=== PATIENT | male | born 1980 ===

== ENCOUNTER 2017-11-07 23:52 | Inpatient (IN) | payer OTHER ==
--- NOTE | 2017-11-08 00:17 | C.PDOC ---
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 Patient has a Hx a clot to the left leg and is on xarelto. Patient describes the pain as a dull achy discomfort. Denies fever or chills. Time Seen by Provider: 11/08/17 00:16 Chief Complaint (Nursing): Chest Pain History Per: Patient History/Exam Limitations: no limitations Onset/Duration Of Symptoms: Hrs Current Symptoms Are (Timing): Still Present Severity: Moderate Pain Scale Rating Of: 4 Quality: Dull, Aching Associated Symptoms: denies: Nausea, Dyspnea, Diaphoresis, Syncope Modifying Factors: None Exacerbating Factors: None Alleviating Factors: None Recent travel outside of the [place]: No Past Medical History Reviewed: Historical Data, Nursing Documentation, Vital Signs Vital Signs: Last Vital Signs Temp 98.4 F 11/07/17 23:59 Pulse 69 11/08/17 02:21 Resp 16 11/08/17 02:21 BP 126/82 11/08/17 02:21 Pulse Ox 99 11/08/17 02:21 - Medical History PMH: Deep Vein Thrombosis (LEFT THIGH) Family History: States: No Known Family Hx - Social History Hx Alcohol Use: No Hx Substance Use: No - Immunization History Hx Tetanus Toxoid Vaccination: No Hx Influenza Vaccination: No Hx Pneumococcal Vaccination: No Review Of Systems Constitutional: Positive for: Weakness. Negative for: Fever, Chills Cardiovascular: Positive for: Chest Pain Respiratory: Negative for: Shortness of Breath Gastrointestinal: Negative for: Nausea, Vomiting Musculoskeletal: Positive for: Arm Pain Physical Exam - Physical Exam Appears: Non-toxic Skin: Warm, Dry Head: Normacephalic Oral Mucosa: Moist Chest: Symmetrical, No Tenderness Cardiovascular: Rhythm Regular Respiratory: No Rales, No Rhonchi, No Wheezing Gastrointestinal/Abdominal: Soft, No Tenderness Neurological/Psych: Oriented x3 ED Course And Treatment - Laboratory Results Result Diagrams: 11/08/17 00:29 11/08/17 00:29 ECG: Interpreted By Me, Viewed By Me ECG Rhythm: Sinus Rhythm (75), Nonspecific Changes O2 Sat by Pulse Oximetry: 100 (Room air) Pulse Ox Interpretation: Normal Progress Note: CT head, EKG, blood work, urinalysis, and CXR ordered. Aspirin administered. NIHSS Stroke Scale - Date/Time Evaluation Performed Date Performed: 11/08/17 Time Performed: 00:23 When Was NIHSS Performed: Baseline - How Severe is the Stoke Level of Consciousness: 0=Alert LOC to Questions: 0=Both comments correct LOC to commands: 0=Obeys both correctly Best Gaze: 0=Normal Visual: 0=No visual loss Facial: 0=Normal Motor Arm - Left: 0=No drift Motor Arm - Right: 0=No drift Motor Leg - Left: 0=No drift Motor Leg - Right: 0=No drift Limb Ataxia: 0=Absent Sensory: 0=Normal Best Language: 0=No aphasia Dysarthia: 0=Normal articulation Extinction & Inattention (Neglect): 0=Normal, no object Score: 0 Severity Of Stroke: 0= No Stroke Disposition Discussed With DrMeghan: Blaze Sargent Comment: accepted the pt on his service and took over the care at 2:50 AM Doctor Will See Patient In The: ED Counseled Patient/Family Regarding: Studies Performed, Diagnosis, Need For Followup - Disposition Disposition: HOSPITALIZED Disposition Time: 00:17 Condition: FAIR Forms: [facility] (German) - POA Present On Arrival: None - Clinical Impression Clinical Impression: Chest pain - Scribe Statement The provider has reviewed the documentation as recorded by the Scribe Toni Mckeon All medical record entries made by the Urielibbecky were at my direction and personally dictated by me. I have reviewed the chart and agree that the record accurately reflects my personal performance of the history, physical exam, medical decision making, and the department course for this patient. I have also personally directed, reviewed, and agree with the discharge instructions and disposition. Decision To Admit - Pt Status Changed To: Hospital Disposition Of: Inpatient - Admit Certification Admit to Inpatient:: After my assessment, the patient will require hospitalization for at least two midnights. This is because of the severity of symptoms shown, intensity of services needed, and/or the medical risk in this patient being treated as an outpatient. - InPatient: Physician Admission Certification: I certify that this patient requires 2 or more midnights of care for the following reason:: After my assessment, the patient will require hospitalization for at least two midnights. This is because of the severity of symptoms shown, intensity of services needed, and/or the medical risk in this patient being treated as an outpatient. - . Bed Request Type: Telemetry Admitting Physician: Blaze Sargent Patient Diagnosis: Chest pain
[2017-11-08] MEDS ORDERED: Aspirin 325 mg EC Tablets PO STA (00:18)
[2017-11-08 00:32] LABS: BASO % 0.6 % (0.0-2.0); EOS # 0.1 K/uL (0.0-0.7); EOS % 2.2 % (0.0-4.0); HEMOGLOBIN 12.2 g/dL (12.0-18.0); LYMPH # 1.4 K/uL (1.0-4.3); LYMPH % 30.2 % (20.0-40.0); MEAN CELL VOLUME 65.7 fL (80.0-94.0); MEAN CORPUSCULAR HEMOGLOBIN 21.2 pg (27.0-31.0); MEAN CORPUSCULAR HGB CONC 32.4 g/dL (33.0-37.0); MEAN PLATELET VOLUME 8.9 fL (7.2-11.7); MONO # 0.2 K/uL (0.0-0.8); MONO % 5.5 % (0.0-10.0); NEUT # 2.8 K/uL (1.8-7.0); NEUT % 61.5 % (50.0-75.0); RBC 5.76 Mil/uL (4.40-5.90); RED CELL DISTRIBUTION WIDTH 15.1 % (11.5-14.5); WHITE BLOOD COUNT 4.5 K/uL (4.8-10.8)
[2017-11-08] MEDS ORDERED: Aspirin 325 mg EC Tablets PO ONE (00:34)
[2017-11-08 00:46] LABS: D DIMER < 200 ng/mlDDU (0-243); INR 1.1; PARTIAL THROMBOPLASTIN TIME 28 SECONDS (21-34); PROTHROMBIN TIME 12.8 SECONDS (9.7-12.2)
[2017-11-08 00:55] LABS: ALB/GLOB RATIO 1.5 (1.0-2.1); ALBUMIN 4.2 g/dL (3.5-5.0); ALT/SGPT 10 U/L (21-72); AST/SGOT 16 U/L (17-59); BLOOD UREA NITROGEN 11 mg/dL (9-20); CALCIUM 8.4 mg/dl (8.6-10.4); GFR AFRICAN-AMERICAN > 60; GFR NON-AFRICAN AMERICAN > 60
--- NOTE | 2017-11-08 01:05 | CT ---
EXAM: CT Head Without Intravenous Contrast CLINICAL HISTORY: 37 years old, male; Pain; Headache and other: Right arm pain and heavyness and mid chest pain; Additional info: Pain r arm, on xeralto TECHNIQUE: Axial computed tomography images of the head/brain without intravenous contrast. All CT scans at this facility use one or more dose reduction techniques, viz.: automated exposure control; ma/kV adjustment per patient size (including targeted exams where dose is matched to indication; i.e. head); or iterative reconstruction technique. Coronal and sagittal reformatted images were created and reviewed. COMPARISON: No relevant prior studies available. FINDINGS: Brain: Focal hypodensity in the anterior right frontal lobe is identified. No hemorrhage. Ventricles: Unremarkable. No ventriculomegaly. Bones/joints: Unremarkable. No acute fracture. Soft tissues: Unremarkable. Sinuses: Unremarkable as visualized. No acute sinusitis. Mastoid air cells: Unremarkable as visualized. No mastoid effusion. IMPRESSION: Right frontal lobe hypodensity secondary to ischemic or inflammatory process. Further evaluation with MR of the brain could be obtained. No acute intracranial hemorrhage.
--- NOTE | 2017-11-08 03:35 | CP.PCM.HP ---
<MarceloJose duke - Last Filed: 11/08/17 03:41> History of Present Illness - History of Present Illness History of Present Illness: CC: Right arm weakness and chest pain since 7pm PMD: None Code Status: full code This patient is a 37yo M w/ a PMhx of DVT in the LLE diagnosed last month, unprovoked, who never underwent further blood testing as "if it gets worse I will do it then but I don't need to see a musical performer now" currently on Xarelto , therapeutic, for a LLE DVT. He states that his sister as well had a LLE DVT when she was , and therefore must be unrelated. He is complaining of right arm weakness and chest pain since 7pm. 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 He states he also has intermittent chest pain, described as dull, not associated with any other symptoms. Denies THAO, blurry/double vision, changes in vision, change in taste, change in hearing, SOB, diaphoresis, feeling of impending doom/panic, abdominal pain, N/V/D, dysuria/freq/urg or lower extremity pain/swelling. 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 Is from [place] originally now living in the [facility]. Present on Admission - Present on Admission Any Indicators Present on Admission: Yes History of DVT/PE: Yes History of Uncontrolled Diabetes: No Urinary Catheter: No Decubitus Ulcer Present: No Past Patient History - Infectious Disease Hx of Infectious Diseases: None - Past Social History Smoking Status: Never Smoked - PSYCHIATRIC Hx Substance Use: No - SURGICAL HISTORY Hx Surgeries: No - ANESTHESIA Hx Anesthesia: No Meds Allergies/Adverse Reactions: Allergies Allergy/AdvReac Type Severity Reaction Status Date / Time No Known Allergies Allergy Unverified 11/07/17 23:56 Physical Exam - Constitutional Appears: Non-toxic, No Acute Distress - Head Exam Head Exam: ATRAUMATIC - Eye Exam Eye Exam: EOMI, Normal appearance, PERRL. absent: Scleral icterus Pupil Exam: PERRL - ENT Exam ENT Exam: Mucous Membranes Moist - Neck Exam Neck exam: Positive for: Full Rom, Normal Inspection. Negative for: Lymphadenopathy, Meningismus, Tenderness, Thyromegaly - Respiratory Exam Respiratory Exam: Clear to Auscultation Bilateral, NORMAL BREATHING PATTERN. absent: Rales, Rhonchi, Wheezes, Respiratory Distress, Stridor - Cardiovascular Exam Cardiovascular Exam: REGULAR RHYTHM, RRR, +S1, +S2. absent: Tachycardia, Diastolic murmur, Gallop, JVD, Rubs, Systolic Murmur - GI/Abdominal Exam GI & Abdominal Exam: Normal Bowel Sounds, Soft. absent: Hernia, Organomegaly, Pulsatile Mass, Rebound, Rigid, Tenderness - Extremities Exam Extremities exam: Positive for: full ROM. Negative for: calf tenderness, pedal edema - Back Exam Back exam: NORMAL INSPECTION. 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 -Rhomberg, CN2-12 intact - Psychiatric Exam Psychiatric exam: Normal Affect, Normal Mood - Skin Skin Exam: Warm Results - Vital Signs Recent Vital Signs: Last Vital Signs Temp 98.4 F 11/07/17 23:59 Pulse 69 11/08/17 02:21 Resp 16 11/08/17 02:21 BP 126/82 11/08/17 02:21 Pulse Ox 100 11/08/17 02:54 - Labs Result Diagrams: 11/08/17 00:29 11/08/17 00:29 Labs: Laboratory Results - last 24 hr 11/08/17 11/08/17 11/08/17 00:29 00:29 00:29 WBC 4.5 L RBC 5.76 Hgb 12.2 Hct 37.8 MCV 65.7 L MCH 21.2 L MCHC 32.4 L RDW 15.1 H Plt Count 212 MPV 8.9 Neut % (Auto) 61.5 Lymph % (Auto) 30.2 [place] % (Auto) 5.5 Eos % (Auto) 2.2 Baso % (Auto) 0.6 Neut # (Auto) 2.8 Lymph # (Auto) 1.4 [place] # (Auto) 0.2 Eos # (Auto) 0.1 Baso # (Auto) 0.0 Differential Comment PT 12.8 H INR 1.1 APTT 28 D-Dimer, Quantitative < 200 Sodium 143 Potassium 3.8 Chloride 101 Carbon Dioxide 27 Anion Gap 19 BUN 11 Creatinine 0.7 L Est GFR ( Amer) > 60 Est GFR (Non-Af Amer) > 60 Random Glucose 86 Calcium 8.4 L Total Bilirubin 0.4 AST 16 L ALT 10 L Alkaline Phosphatase 44 Troponin I < 0.0120 Total Protein 6.9 Albumin 4.2 Globulin 2.7 Albumin/Globulin Ratio 1.5 Assessment & Plan - Assessment and Plan (Free Text) Assessment: 37yo M admitted for TIA/Stroke/Inflammatory lesion TIA/Stroke/Inflammtory lesion -high dose statin and aspirin given -Neurology, Dr. Ty made aware and called; recommended the following f/u imaging: -MRI of Brain w/ and w/o contrast -Head and Neck MRA -CT shows right frontal lobe hypodensity ischemic vs inflammatory process; please refer to full report -c/w aspirin 81mg and Crestor 40mg -f/u HbA1C, Lipid Panel, and TSH Chest Pain -EKG NSR w/ no ST T wave abnormalities -initial troponin negative, f/u JILLIAN @6am and 12PM 11/08 -telemetry Hx of DVT -patient should be encouraged to do hypercoaguable workup once deemed safe to stop taking xarelto -strong family history Proph -GI prophylaxis not indicated -Xarelto 15mg BID -Pt/OT Case discussed with Dr. Rosetta Garsia PGY2 Decision To Admit - Pt Status Changed To: Hospital Disposition Of: Inpatient - Admit Certification Admit to Inpatient:: After my assessment, the patient will require hospitalization for at least two midnights. This is because of the severity of symptoms shown, intensity of services needed, and/or the medical risk in this patient being treated as an outpatient. - InPatient: Physician Admission Certification:: Chest pain/stroke - . Bed Request Type: Telemetry Admitting Physician: Blaze Sargent NIHSS Stroke Scale - Date/Time Evaluation Performed Date Performed: 11/08/17 Time Performed: 00:23 When Was NIHSS Performed: Baseline - How Severe is the Stoke Level of Consciousness: 0=Alert LOC to Questions: 0=Both comments correct LOC to commands: 0=Obeys both correctly Best Gaze: 0=Normal Visual: 0=No visual loss Facial: 0=Normal Motor Arm - Left: 0=No drift Motor Arm - Right: 1=Drift noted before 10 sec Motor Leg - Left: 0=No drift Motor Leg - Right: 0=No drift Limb Ataxia: 1=Present Upper or Lower Sensory: 0=Normal Best Language: 0=No aphasia Dysarthia: 0=Normal articulation Extinction & Inattention (Neglect): 0=Normal, no object Score: 2 Severity Of Stroke: 1-4= Minor Stroke <Blaze Sargent - Last Filed: 11/08/17 06:30> Results - Vital Signs Recent Vital Signs: Last Vital Signs Temp 98.4 F 11/07/17 23:59 Pulse 69 11/08/17 02:21 Resp 16 11/08/17 02:21 BP 126/82 11/08/17 02:21 Pulse Ox 100 11/08/17 02:54 - Labs Result Diagrams: 11/08/17 00:29 11/08/17 00:29 Labs: Laboratory Results - last 24 hr 11/08/17 11/08/17 11/08/17 00:29 00:29 00:29 WBC 4.5 L RBC 5.76 Hgb 12.2 Hct 37.8 MCV 65.7 L MCH 21.2 L MCHC 32.4 L RDW 15.1 H Plt Count 212 MPV 8.9 Neut % (Auto) 61.5 Lymph % (Auto) 30.2 [place] % (Auto) 5.5 Eos % (Auto) 2.2 Baso % (Auto) 0.6 Neut # (Auto) 2.8 Lymph # (Auto) 1.4 [place] # (Auto) 0.2 Eos # (Auto) 0.1 Baso # (Auto) 0.0 Differential Comment PT 12.8 H INR 1.1 APTT 28 D-Dimer, Quantitative < 200 Sodium 143 Potassium 3.8 Chloride 101 Carbon Dioxide 27 Anion Gap 19 BUN 11 Creatinine 0.7 L Est GFR ( Amer) > 60 Est GFR (Non-Af Amer) > 60 Random Glucose 86 Calcium 8.4 L Total Bilirubin 0.4 AST 16 L ALT 10 L Alkaline Phosphatase 44 Troponin I < 0.0120 Total Protein 6.9 Albumin 4.2 Globulin 2.7 Albumin/Globulin Ratio 1.5 Triglycerides Cholesterol LDL Cholesterol Direct HDL Cholesterol TSH 3rd Generation HIV 1&2 Antibody Screen 11/08/17 11/08/17 04:17 04:17 WBC RBC Hgb Hct MCV MCH MCHC RDW Plt Count MPV Neut % (Auto) Lymph % (Auto) [place] % (Auto) Eos % (Auto) Baso % (Auto) Neut # (Auto) Lymph # (Auto) [place] # (Auto) Eos # (Auto) Baso # (Auto) Differential Comment PT INR APTT D-Dimer, Quantitative Sodium Potassium Chloride Carbon Dioxide Anion Gap BUN Creatinine Est GFR ( Amer) Est GFR (Non-Af Amer) Random Glucose Calcium Total Bilirubin AST ALT Alkaline Phosphatase Troponin I Total Protein Albumin Globulin Albumin/Globulin Ratio Triglycerides 126 Cholesterol 222 H LDL Cholesterol Direct 136 H HDL Cholesterol 44 TSH 3rd Generation 2.10 HIV 1&2 Antibody Screen Negative Assessment & Plan - Date & Time Date: 11/08/17 (I have seen and examined the patient. I agree with the findings and plan of care as documented by Dr. Garsia. Patient with CVA/TIA and chest pain. CT head with possible lesion. MRI needed. History of DVT. Continue Xarelto. ROMIx3 with EKG. Aspirin and Statin. Monitor for acute changes.) Time: 06:29 Attending/Attestation - Attestation I have personally seen and examined this patient.: Yes I have fully participated in the care of the patient.: Yes I have reviewed all pertinent clinical information: Yes
--- NOTE | 2017-11-08 06:50 | RAD ---
Chest x-ray single frontal view History: Chest pain. Comparison: None available. Findings: Mild venous congestion. Bilateral hilar prominence. Heart size within normal limits. Degenerative changes in the spine. Impression: Mild venous congestion.
[2017-11-08 07:08] LABS: CK-MB < 0.22 ng/mL (0.0-3.38)
[2017-11-08 07:58] LABS: URINE BACTERIA RARE (<OCC); URINE BILIRUBIN NEGATIVE (NEGATIVE); URINE BLOOD NEGATIVE (NEGATIVE); URINE CLARITY Hazy (Clear); URINE COLOR Yellow (YELLOW); URINE GLUCOSE (UA) NORMAL (Normal); URINE LEUKOCYTE ESTERASE NEG Leu/uL (Negative); URINE PROTEIN NEGATIVE (NEGATIVE)
--- NOTE | 2017-11-08 11:14 | MRI ---
PROCEDURE: Magnetic Resonance Angiography Brain HISTORY: ischemic vs inflammatory process COMPARISON: None available. TECHNIQUE: 3D time of flight MR angiography of the intracranial arteries was performed. Rotating maximum intensity projection images were generated. FINDINGS: There is asymmetry in the calibers of the internal carotid and middle cerebral arteries, left larger than right, likely anatomic variant. INTERNAL CAROTID ARTERIES: Normal flow related signal. The skull base, petrous, cavernous and supraclinoid segments are bilaterally widely patient. ANTERIOR CEREBRAL ARTERIES: Normal flow related signal. The right A1 segment is hypoplastic, an anatomic variant. A1 and A2 segments are widely patent. Smaller distal branches unremarkable, as visualized. MIDDLE CEREBRAL ARTERIES: Normal flow related signal. M1 and M2 segments are widely patent. Perisylvian branches grossly symmetric. POSTERIOR CIRCULATION: Basilar Artery: Normal flow related signal. Hypoplastic basilar artery. Distal Vertebral Arteries: The right vertebral artery is dominant. The left vertebral artery terminates in PICA. Posterior Cerebral Arteries: There is normal flow related signal in the right posterior cerebral artery There is origin of the left posterior cerebral artery. Posterior Inferior Cerebellar Arteries: Normal flow related signal and caliber of the right posterior inferior cerebral artery. The left vertebral artery terminates in the posterior inferior cerebellar artery. ANEURYSM/ VASCULAR MALFORMATIONS: None. OTHER FINDINGS: None. IMPRESSION: 1. Asymmetry in the calipers of the internal carotid and middle cerebral arteries, left larger than right which may be an anatomic variant. 2. origin of the right posterior cerebral artery, hypoplastic basilar artery and hypoplastic left vertebral artery terminating in the posterior inferior cerebellar artery, all anatomic variants. 3. No evidence of occlusion, definite significant stenosis or saccular aneurysm.
--- NOTE | 2017-11-08 11:29 | MRI ---
PROCEDURE: MR Angiography of the neck without contrast HISTORY: ischemic vs inflammatory process COMPARISON: None available. TECHNIQUE: 3D [id number] angiography of the neck was performed. Rotating maximum intensity projection images of the cervical carotid and vertebral arteries were generated. The origins of the common carotid arteries were not visualized, which is a limitation inherent to the non-contrast time of flight technique. FINDINGS: There is asymmetry in the caliber sub the common carotid and internal carotid arteries, left larger than right, likely an anatomic variant. RIGHT CAROTID ARTERIES: Common Carotid Artery: Normal. Carotid Bifurcation: Normal. Internal Carotid Artery:Normal. External Carotid Artery (proximal branches): Normal. LEFT CAROTID ARTERIES: Common Carotid Artery: Normal. Carotid Bifurcation: Normal. Internal Carotid Artery:Normal. External Carotid Artery (proximal branches): Normal. VERTEBRAL ARTERIES: Right Vertebral Artery: Normal. Left Vertebral Artery: Normal. The left vertebral artery is hypoplastic, an anatomic variant. OTHER FINDINGS: None. IMPRESSION: 1. Asymmetry in the caliber of the common carotid and internal carotid arteries, left larger than right, likely anatomic variant. 2. No evidence of hemodynamically significant stenosis in the internal carotid arteries. 3. Patent bilateral vertebral arteries. The left vertebral artery is hypoplastic, an anatomic variant.
--- NOTE | 2017-11-08 12:05 | MRI ---
PROCEDURE: MRI BRAIN WITH AND WITHOUT CONTRAST HISTORY: hypodensity vs inflammatory process COMPARISON: Noncontrast head CT from 11/08/2017. TECHNIQUE: Multiplanar, multisequence MR images of the brain were obtained with and without intravenous contrast enhancement. 16 mL Omniscan was injected intravenously. FINDINGS: HEMORRHAGE: None DWI: No evidence of an acute or early subacute infarction. BRAIN PARENCHYMA: There are multiple bilateral asymmetry T2/FLAIR hyperintense lesions in the subcortical, deep and periventricular white matter, linear an ovoid lesions perpendicular to the ventricle and lesions at the callosal septal interface. There are also similar lesions in the right dirk radha and faint T2/FLAIR hyperintensity in the right brachium pontis. The largest concentric appearing lesion in the centrum semiovale measures 2.2 x 1.7 cm. There is mild non contiguous enhancement along the medial margin of this lesion. There is also an enhancing lesion in the left centrum semiovale and left parietal subcortical white matter. There is subtle anterior incomplete enhancement in the right inferior pontine lesion. ENHANCEMENT: Parenchymal enhancing lesions in the right centrum semiovale, left centrum semiovale, left parietal subcortical white matter and right radha as described above. No leptomeningeal enhancement. VENTRICLES: There is mild global parenchymal volume loss and proportionate enlargement of the ventricles and cortical sulci. CRANIUM: There is normal bone marrow signal pattern. ORBITS: Grossly unremarkable. PARANASAL SINUSES/MASTOIDS: Predominantly clear. VASCULAR SYSTEM: There are normal signal voids in the larger intracranial arteries. OTHER FINDINGS: None . IMPRESSION: 1. The constellation of findings is most compatible with demyelinating plaques of multiple sclerosis with active demyelination in the right centrum semiovale, left centrum semiovale, left parietal subcortical white matter and right inferior radha. The largest cons centric demyelinating lesion in the right centrum semiovale measures 2.2 x 1.7 cm. 2. Mild global parenchymal volume loss, advanced for the patient's age. MRI of the cervical and thoracic spine with and without intravenous contrast is recommended for complete evaluation of the spinal cord. Important findings were discussed with Dr. Devin Ty on 11/08/2017 at 11:30 a.m.
[2017-11-08 13:50] LABS: CK-MB < 0.22 ng/mL (0.0-3.38)
--- NOTE | 2017-11-08 13:53 | CP.PCM.PN ---
Subjective - Date & Time of Evaluation Date of Evaluation: 11/08/17 Time of Evaluation: 07:00 - Subjective Subjective: PGY1- Medicine Note Patient seen and examined at bedside and in no acute distress. Patient says he is feeling much better than yesterday. Patient says his arm numbness and weakness has resolved. Patient also says he is no longer having chest pain. Patient denies any other complaints. Patient says he has never had any episode of blurry vision or muscle weakness in the past. Objective - Vital Signs/Intake and Output Vital Signs (last 24 hours): Temp Pulse Resp BP Pulse Ox 98 F 54 L 14 121/84 100 11/08/17 06:55 11/08/17 11:57 11/08/17 11:57 11/08/17 11:57 11/08/17 11:57 - Medications Medications: Current Medications Acetaminophen (Tylenol 325mg Tab) 650 mg PO Q6 PRN PRN Reason: Pain, Mild (1-3) Aspirin (Ecotrin) 81 mg PO DAILY [facility] Ketorolac Tromethamine (Toradol) 30 mg IV Q6 PRN PRN Reason: Pain, moderate (4-7) Ondansetron HCl (Zofran Inj) 4 mg IVP Q6 PRN PRN Reason: Nausea/Vomiting Rivaroxaban (Xarelto) 15 mg PO BID [facility] Last Admin: 11/08/17 11:49 Dose: 15 mg Rosuvastatin Calcium (Crestor) 40 mg PO HS [facility] - Labs Labs: 11/08/17 00:29 11/08/17 00:29 PT 12.8 SECONDS (9.7-12.2) H 11/08/17 00:29 INR 1.1 11/08/17 00:29 APTT 28 SECONDS (21-34) 11/08/17 00:29 - Constitutional Appears: Non-toxic, No Acute Distress - Head Exam Head Exam: ATRAUMATIC, NORMAL INSPECTION, NORMOCEPHALIC - Eye Exam Eye Exam: EOMI, Normal appearance - ENT Exam ENT Exam: Mucous Membranes Moist - Respiratory Exam Respiratory Exam: Clear to Ausculation Bilateral, NORMAL BREATHING PATTERN. absent: Rhonchi, Wheezes, Respiratory Distress, Stridor - Cardiovascular Exam Cardiovascular Exam: REGULAR RHYTHM, RRR, +S1, +S2 - GI/Abdominal Exam GI & Abdominal Exam: Soft, Normal Bowel Sounds - Extremities Exam Extremities Exam: Full ROM, Normal Inspection. absent: Pedal Edema, Tenderness - Back Exam Back Exam: NORMAL INSPECTION - Neurological Exam Neurological Exam: Alert, Awake, CN II-XII Intact, Oriented x3 Neuro motor strength exam: Left Upper Extremity: 5, Right Upper Extremity: 5, Left Lower Extremity: 5, Right Lower Extremity: 5 - Psychiatric Exam Psychiatric exam: Normal Affect, Normal Mood - Skin Skin Exam: Intact, Normal Color, Warm Assessment and Plan - Assessment and Plan (Free Text) Assessment: Multiple Sclerosis -high dose statin and aspirin given -Neurology, Dr. Ty made aware and called; recommended the following f/u imaging: -CT shows right frontal lobe hypodensity ischemic vs inflammatory process; please refer to full report -Brain MRI: constellation of findings is most compatible with demyelinating plaques of multiple sclerosis with active demyelination in the right centrum semiovale, left centrum semiovale, left parietal subcortical white matter and right inferior radha. The largest cons centric demyelinating lesion in the right centrum semiovale measures 2.2 x 1.7cm. Mild global parenchymal volume loss, advanced for the patient's age. MRI of the cervical and thoracic spine with and without iv contrast recommended for complete evaluation of the spinal cord. -Head MRA: no evidence of occlusion, definite significant stenosis or saccular aneurysm; please refer to full report -Neck MRA: asymmetry in the caliber of the common carotid and internal carotid arteries, left larger than right, likely anatomic variant. No evidence of hemodynamically significant stenosis in the internal carotid arteries. Patent b/ l vertebral arteries. 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 f/u MRI C spine Lumbar puncture was performed by Dr. Ty CSF evaluated for IgG index, Myelin Basic Protein, oligoclonal bands, cell count , protein and glucose. solumedrol 1000 mg daily for 5 days start Tysabri as an outpatient Chest Pain -resolved -EKG NSR w/ no ST T wave abnormalities -Troponins negative x 3 -telemetry -aspirin 81mg -HbA1C- 5.7 Hyperlipidemia -Lipid Panel: Triglycerides-126, Cholesterol-222, LDL-136, HDL- 4 -Crestor 40mg Hx of DVT -patient should be encouraged to do hypercoaguable workup once deemed safe to stop taking xarelto -strong family history Prophylaxis -GI prophylaxis not indicated -Xarelto 15mg BID -Pt/OT
[2017-11-08] MEDS ORDERED: Lidocaine 1% Inj (20ml) INFIL ONE (14:58)
[2017-11-08] MEDS ORDERED: MethylPREDNISolone 1 gm Vial IV SCH (16:15)
--- NOTE | 2017-11-08 17:11 | CP.PCM.CON ---
History of Present Illness - History of Present Illness History of Present Illness: Neurology Consultation Note: Mr. Santiago is a 37-year-old man with no significant past medical history other than a suspected left lower extremity superficial thrombus that was diagnosed a few weeks ago, and recurrent leg pain/weakness, who presented with right arm weakness and numbness. CT of the head was done and was concerning for a hypodense area. MRI of the brain with contrast was requested, and it showed multiple enhancing and non-enhancing lesions indicative of multiple sclerosis. These lesions were bilateral, luis-collasal, and also involved the brainstem. Review of Systems - Review of Systems All systems: reviewed and no additional remarkable complaints except Past Patient History - Infectious Disease Hx of Infectious Diseases: None - Past Social History Smoking Status: Never Smoked - PSYCHIATRIC Hx Substance Use: No - SURGICAL HISTORY Hx Surgeries: No - ANESTHESIA Hx Anesthesia: No Meds Allergies/Adverse Reactions: Allergies Allergy/AdvReac Type Severity Reaction Status Date / Time No Known Allergies Allergy Unverified 11/07/17 23:56 - Medications Medications: Current Medications Acetaminophen (Tylenol 325mg Tab) 650 mg PO Q6 PRN PRN Reason: Pain, Mild (1-3) Aspirin (Ecotrin) 81 mg PO DAILY [facility] Methylprednisolone 1 gm/ (Sodium Chloride) 250 mls @ 250 mls/hr IV Q24H [facility] Ketorolac Tromethamine (Toradol) 30 mg IV Q6 PRN PRN Reason: Pain, moderate (4-7) Ondansetron HCl (Zofran Inj) 4 mg IVP Q6 PRN PRN Reason: Nausea/Vomiting Rivaroxaban (Xarelto) 15 mg PO BID [facility] Last Admin: 11/08/17 11:49 Dose: 15 mg Rosuvastatin Calcium (Crestor) 40 mg PO [facility] Physical Exam - Constitutional Appears: Well - Head Exam Head Exam: ATRAUMATIC, NORMAL INSPECTION, NORMOCEPHALIC - Eye Exam Eye Exam: EOMI, Normal appearance, PERRL - ENT Exam ENT Exam: Mucous Membranes Moist, Normal Exam - Respiratory Exam Respiratory Exam: Clear to Auscultation Bilateral, NORMAL BREATHING PATTERN - Cardiovascular Exam Cardiovascular Exam: REGULAR RHYTHM - GI/Abdominal Exam GI & Abdominal Exam: Normal Bowel Sounds, Soft. absent: Tenderness - Rectal Exam Rectal Exam: Deferred - Neurological Exam Neurological exam: Abnormal Gait, Alert, CN II-XII Intact, Oriented x3 Additional comments: Reflexes are brisk throughout. RUE is 4/5 in strength proximally/distally, LLE is 4/5 strength proximally/distally. Romberg is positive. Plantar responses were upgoing on the left and equivocal on the right. Gait was wide-based. - Psychiatric Exam Psychiatric exam: Depressed Results - Vital Signs Recent Vital Signs: Last Vital Signs Temp 97.8 F 11/08/17 13:53 Pulse 66 11/08/17 13:53 Resp 18 11/08/17 13:53 BP 127/74 11/08/17 13:53 Pulse Ox 100 11/08/17 13:53 - Labs Result Diagrams: 11/08/17 00:29 11/08/17 00:29 Labs: Laboratory Results - last 24 hr 11/08/17 11/08/17 11/08/17 00:29 00:29 00:29 WBC 4.5 L RBC 5.76 Hgb 12.2 Hct 37.8 MCV 65.7 L MCH 21.2 L MCHC 32.4 L RDW 15.1 H Plt Count 212 MPV 8.9 Neut % (Auto) 61.5 Lymph % (Auto) 30.2 [place] % (Auto) 5.5 Eos % (Auto) 2.2 Baso % (Auto) 0.6 Neut # (Auto) 2.8 Lymph # (Auto) 1.4 [place] # (Auto) 0.2 Eos # (Auto) 0.1 Baso # (Auto) 0.0 Differential Comment PT 12.8 H INR 1.1 APTT 28 D-Dimer, Quantitative < 200 Sodium 143 Potassium 3.8 Chloride 101 Carbon Dioxide 27 Anion Gap 19 BUN 11 Creatinine 0.7 L Est GFR ( Amer) > 60 Est GFR (Non-Af Amer) > 60 Random Glucose 86 Hemoglobin A1c Calcium 8.4 L Total Bilirubin 0.4 AST 16 L ALT 10 L Alkaline Phosphatase 44 Total Creatine Kinase CK-MB (Mass) Troponin I < 0.0120 Total Protein 6.9 Albumin 4.2 Globulin 2.7 Albumin/Globulin Ratio 1.5 Triglycerides Cholesterol LDL Cholesterol Direct HDL Cholesterol TSH 3rd Generation Urine Color Urine Clarity Urine pH Ur Specific [place] Urine Protein Urine Glucose (UA) Urine Ketones Urine Blood Urine Nitrate Urine Bilirubin Urine Urobilinogen Ur Leukocyte Esterase Urine WBC (Auto) Urine RBC (Auto) Urine Bacteria HIV 1&2 Antibody Screen 11/08/17 11/08/17 11/08/17 03:59 04:17 04:17 WBC RBC Hgb Hct MCV MCH MCHC RDW Plt Count MPV Neut % (Auto) Lymph % (Auto) [place] % (Auto) Eos % (Auto) Baso % (Auto) Neut # (Auto) Lymph # (Auto) [place] # (Auto) Eos # (Auto) Baso # (Auto) Differential Comment PT INR APTT D-Dimer, Quantitative Sodium Potassium Chloride Carbon Dioxide Anion Gap BUN Creatinine Est GFR ( Amer) Est GFR (Non-Af Amer) Random Glucose Hemoglobin A1c 5.7 Calcium Total Bilirubin AST ALT Alkaline Phosphatase Total Creatine Kinase CK-MB (Mass) Troponin I Total Protein Albumin Globulin Albumin/Globulin Ratio Triglycerides 126 Cholesterol 222 H LDL Cholesterol Direct 136 H HDL Cholesterol 44 TSH 3rd Generation 2.10 Urine Color Urine Clarity Urine pH Ur Specific [place] Urine Protein Urine Glucose (UA) Urine Ketones Urine Blood Urine Nitrate Urine Bilirubin Urine Urobilinogen Ur Leukocyte Esterase Urine WBC (Auto) Urine RBC (Auto) Urine Bacteria HIV 1&2 Antibody Screen Negative 11/08/17 11/08/17 11/08/17 06:25 07:45 12:07 WBC RBC Hgb Hct MCV MCH MCHC RDW Plt Count MPV Neut % (Auto) Lymph % (Auto) [place] % (Auto) Eos % (Auto) Baso % (Auto) Neut # (Auto) Lymph # (Auto) [place] # (Auto) Eos # (Auto) Baso # (Auto) Differential Comment PT INR APTT D-Dimer, Quantitative Sodium Potassium Chloride Carbon Dioxide Anion Gap BUN Creatinine Est GFR ( Amer) Est GFR (Non-Af Amer) Random Glucose Hemoglobin A1c Calcium Total Bilirubin AST ALT Alkaline Phosphatase Total Creatine Kinase 35 L 36 L CK-MB (Mass) < 0.22 < 0.22 Troponin I < 0.0120 < 0.0120 Total Protein Albumin Globulin Albumin/Globulin Ratio Triglycerides Cholesterol LDL Cholesterol Direct HDL Cholesterol TSH 3rd Generation Urine Color Yellow Urine Clarity Hazy Urine pH 6.0 Ur Specific [place] 1.021 Urine Protein Negative Urine Glucose (UA) Normal Urine Ketones Negative Urine Blood Negative Urine Nitrate Negative Urine Bilirubin Negative Urine Urobilinogen 2.0 Ur Leukocyte Esterase Neg Urine WBC (Auto) 1 Urine RBC (Auto) < 1 Urine Bacteria Rare HIV 1&2 Antibody Screen Assessment & Plan (1) Multiple sclerosis Assessment and Plan: Lumbar puncture was performed and CSF will be evaluated for IgG index, Myelin Basic Protein, and oligoclonal bands, as well as the usual cell count, protein and glucose. The patient will be started on solumedrol 1000 mg daily for 5 days. He will require outpatient follow-up with a plan to start Tysabri. Neurology will follow. Thank you. Status: Acute Priority: High
[2017-11-08 17:55] VITALS: RESP 20
[2017-11-08] MEDS: Pantoprazole 40 mg EC Tab PO SCH (18:16)
[2017-11-08] MEDS: methylPREDNISolone 1 GM in Sodium Chloride 0.9% 250 ML IV SCH (18:17)
[2017-11-08 20:23] LABS: FLUID TYPE SPINAL FLUID
[2017-11-08 20:48] LABS: CSF APPEARANCE CLEAR/COLORLESS (CLEAR)
--- NOTE | 2017-11-09 08:10 | CP.PCM.PN ---
Subjective - Date & Time of Evaluation Date of Evaluation: 11/09/17 Time of Evaluation: 08:05 - Subjective Subjective: This is a very nice 37 year old male who came on 11/08 for right arm and right hand weakness. MRI was done and it was concerning for demylinating disease such as mutliple scelrosis. Yesterday a lumbar puncture was done by neurology for ogliocolnal band studies, myelin basic protein, we are pending the results at the moment. He was placed on large doses of IV solumedrol Today he reported that his right hand and right arm weakness is resolved. He also denied chest pain. He has some soreness at the area of the LP. He denied headache, denied nausea, denied photophobia, denied dizziness He is walking fine he says We are still pending the MRI of the cervical spine at this moment. Objective - Vital Signs/Intake and Output Vital Signs (last 24 hours): Temp Pulse Resp BP Pulse Ox 97.8 F 76 20 105/63 96 11/09/17 07:00 11/09/17 07:00 11/09/17 07:00 11/09/17 07:00 11/09/17 07:00 - Medications Medications: Current Medications Acetaminophen (Tylenol 325mg Tab) 650 mg PO Q6 PRN PRN Reason: Pain, Mild (1-3) Aspirin (Ecotrin) 81 mg PO DAILY [facility] Methylprednisolone 1 gm/ (Sodium Chloride) 250 mls @ 250 mls/hr IV Q24H [facility] Last Admin: 11/08/17 18:17 Dose: 250 mls/hr Ketorolac Tromethamine (Toradol) 30 mg IV Q6 PRN PRN Reason: Pain, moderate (4-7) Last Admin: 11/09/17 03:09 Dose: 30 mg Ondansetron HCl (Zofran Inj) 4 mg IVP Q6 PRN PRN Reason: Nausea/Vomiting Pantoprazole Sodium (Protonix Ec Tab) 40 mg PO DAILY [facility] Last Admin: 11/08/17 18:16 Dose: 40 mg Rivaroxaban (Xarelto) 15 mg PO BID [facility] Last Admin: 11/08/17 18:00 Dose: 15 mg Rosuvastatin Calcium (Crestor) 40 mg PO HS [facility] - Labs Labs: 11/08/17 00:29 11/08/17 00:29 PT 12.8 SECONDS (9.7-12.2) H 11/08/17 00:29 INR 1.1 11/08/17 00:29 APTT 28 SECONDS (21-34) 11/08/17 00:29 - Constitutional Appears: Well, No Acute Distress - Head Exam Head Exam: NORMAL INSPECTION, NORMOCEPHALIC - Eye Exam Eye Exam: EOMI, Normal appearance, PERRL Pupil Exam: NORMAL ACCOMODATION - ENT Exam ENT Exam: Mucous Membranes Moist - Respiratory Exam Respiratory Exam: Clear to Ausculation Bilateral, NORMAL BREATHING PATTERN - Cardiovascular Exam Cardiovascular Exam: REGULAR RHYTHM - GI/Abdominal Exam GI & Abdominal Exam: Soft, Normal Bowel Sounds - Neurological Exam Neurological Exam: Alert, Awake, CN II-XII Intact, Oriented x3 Neuro motor strength exam: Left Upper Extremity: 5, Right Upper Extremity: 5, Left Lower Extremity: 5, Right Lower Extremity: 5 - Psychiatric Exam Psychiatric exam: Normal Affect, Normal Mood - Skin Skin Exam: Normal Color, Warm Assessment and Plan - Assessment and Plan (Free Text) Assessment: Multiple Sclerosis 11/09: Patient is able to walk ok. He reports the right arm and right hand is return to normal. On exam 11/16. He denied dizziness, denied photophobia, denied headache. Pending further studies from the LP. He is on IV solumedrol. Pending the spinal MRI. -high dose statin and aspirin given -Neurology, Dr. Ty made aware and called; recommended the following f/u imaging: -CT shows right frontal lobe hypodensity ischemic vs inflammatory process; please refer to full report -Brain MRI: constellation of findings is most compatible with demyelinating plaques of multiple sclerosis with active demyelination in the right centrum semiovale, left centrum semiovale, left parietal subcortical white matter and right inferior radha. The largest cons centric demyelinating lesion in the right centrum semiovale measures 2.2 x 1.7cm. Mild global parenchymal volume loss, advanced for the patient's age. MRI of the cervical and thoracic spine with and without iv contrast recommended for complete evaluation of the spinal cord. -Head MRA: no evidence of occlusion, definite significant stenosis or saccular aneurysm; please refer to full report -Neck MRA: asymmetry in the caliber of the common carotid and internal carotid arteries, left larger than right, likely anatomic variant. No evidence of hemodynamically significant stenosis in the internal carotid arteries. Patent b/ l vertebral arteries. 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 f/u MRI C spine Lumbar puncture was performed by Dr. Ty CSF evaluated for IgG index, Myelin Basic Protein, oligoclonal bands, cell count , protein and glucose. solumedrol 1000 mg daily for 5 days start Tysabri as an outpatient Chest Pain 11/09: troponins have been negative x 3, no more chest pain. -resolved -EKG NSR w/ no ST T wave abnormalities -Troponins negative x 3 -telemetry -aspirin 81mg -HbA1C- 5.7 Hyperlipidemia -Lipid Panel: Triglycerides-126, Cholesterol-222, LDL-136, HDL- 4 -Crestor 40mg Hx of DVT 11/09: Xarelto held for today -patient should be encouraged to do hypercoaguable workup once deemed safe to stop taking xarelto -strong family history Prophylaxis -GI prophylaxis not indicated
[2017-11-09 08:57] LABS: BASO % 0.1 % (0.0-2.0); HEMOGLOBIN 12.9 g/dL (12.0-18.0); LYMPH # 0.6 K/uL (1.0-4.3); LYMPH % 7.6 % (20.0-40.0); MEAN CELL VOLUME 65.2 fL (80.0-94.0); MEAN CORPUSCULAR HEMOGLOBIN 21.2 pg (27.0-31.0); MEAN CORPUSCULAR HGB CONC 32.5 g/dL (33.0-37.0); MEAN PLATELET VOLUME 9.7 fL (7.2-11.7); MONO # 0.1 K/uL (0.0-0.8); MONO % 0.8 % (0.0-10.0); NEUT # 6.8 K/uL (1.8-7.0); NEUT % 91.5 % (50.0-75.0); PLATELET COUNT 236 K/uL (130-400); RBC 6.11 Mil/uL (4.40-5.90); RED CELL DISTRIBUTION WIDTH 15.3 % (11.5-14.5); WHITE BLOOD COUNT 7.5 K/uL (4.8-10.8)
[2017-11-09 09:14] LABS: ALB/GLOB RATIO 1.3 (1.0-2.1); ALBUMIN 4.4 g/dL (3.5-5.0); ALT/SGPT < 6 U/L (21-72); AST/SGOT 15 U/L (17-59); BLOOD UREA NITROGEN 17 mg/dL (9-20); CALCIUM 9.3 mg/dl (8.6-10.4); GFR AFRICAN-AMERICAN > 60; GFR NON-AFRICAN AMERICAN > 60
[2017-11-09 10:30] LABS: LYMPHOCYTE 11 % (20-40); MONOCYTE 1 % (0-10); NEUTROPHIL 88 % (50-75); PLATELET ESTIMATE NORMAL (NORMAL); TOTAL CELLS COUNTED 100
[2017-11-09 10:31] LABS: ANISOCYTOSIS SLIGHT
[2017-11-09 10:32] LABS: OVALOCYTES SLIGHT
--- NOTE | 2017-11-09 10:47 | CP.PCM.PN ---
Subjective - Date & Time of Evaluation Date of Evaluation: 11/09/17 Time of Evaluation: 10:45 - Subjective Subjective: Mr. Santiago was seen and examined today at bedside. He states that he felt his right arm weakness is improved today. He complained of slight back and abdominal pain. He said that he had some trouble sleeping last night. There were no other complaints. Objective - Vital Signs/Intake and Output Vital Signs (last 24 hours): Temp Pulse Resp BP Pulse Ox 97.8 F 88 20 105/63 96 11/09/17 07:00 11/09/17 08:34 11/09/17 07:00 11/09/17 07:00 11/09/17 07:00 - Medications Medications: Current Medications Acetaminophen (Tylenol 325mg Tab) 650 mg PO Q6 PRN PRN Reason: Pain, Mild (1-3) Aspirin (Ecotrin) 81 mg PO DAILY [facility] Methylprednisolone 1 gm/ (Sodium Chloride) 250 mls @ 250 mls/hr IV Q24H [facility] Last Admin: 11/08/17 18:17 Dose: 250 mls/hr Ketorolac Tromethamine (Toradol) 30 mg IV Q6 PRN PRN Reason: Pain, moderate (4-7) Last Admin: 11/09/17 03:09 Dose: 30 mg Ondansetron HCl (Zofran Inj) 4 mg IVP Q6 PRN PRN Reason: Nausea/Vomiting Pantoprazole Sodium (Protonix Ec Tab) 40 mg PO DAILY [facility] Last Admin: 11/08/17 18:16 Dose: 40 mg Rivaroxaban (Xarelto) 15 mg PO BID [facility] Last Admin: 11/08/17 18:00 Dose: 15 mg Rosuvastatin Calcium (Crestor) 40 mg PO HS [facility] - Labs Labs: 11/09/17 08:36 11/09/17 08:36 PT 12.8 SECONDS (9.7-12.2) H 11/08/17 00:29 INR 1.1 11/08/17 00:29 APTT 28 SECONDS (21-34) 11/08/17 00:29 - Neurological Exam Neurological Exam: Awake, CN II-XII Intact, Normal Gait, Oriented x3 Neuro motor strength exam: Left Upper Extremity: 5, Right Upper Extremity: 4, Left Lower Extremity: 5, Right Lower Extremity: 5 Assessment and Plan (1) Multiple sclerosis Assessment & Plan: Will continue the 5 day course of IV solumedrol and continue GI prophylaxis. Benadryl 50 mg can be given for insomnia. Tylenol or ibuprofen can be given for pain. Will follow results of CSF and discuss with the patient/family. Status: Acute
[2017-11-09 10:50] LABS: MICROCYTOSIS SLIGHT
[2017-11-09] MEDS: Pantoprazole 40 mg EC Tab PO SCH (10:52)
[2017-11-09] MEDS ORDERED: Gadodiamide 287 mg/ml 20 ml IV ONE (11:50)
--- NOTE | 2017-11-09 13:23 | MRI ---
PROCEDURE: MRI of cervical spine dated 11/09/2017. HISTORY: Multiple sclerosis COMPARISON: None available however correlation made with prior MRI of the brain 11/08/2017. TECHNIQUE: Multiecho multiplanar sequences were performed through the cervical spine with and without the use of intravenous contrast. . Approximately 16 cc Omniscan injected for this examination FINDINGS: Aside from what is felt to represent linear Asher and/or motion type artifact (linear increased T2 signal ) within the cervical spinal cord seen only on the sagittal STIR sequence, no definitive focal areas of abnormal signal or contrast enhancement seen to suggest demyelinating plaque formation or active sites of demyelination. There are however small plaque seen in the radha which were described on prior MRI of the brain 11/08/2017. There are no acute compression fractures no retropulsed fragments. Vertebral bodies exhibit relatively normal stature. There is straightening of the normal cervical lordosis which could be due to patient positioning gantry however underlying element of muscle spasm could contribute. . Mild multilevel degenerative spondylosis. Changes include varying degrees of mild disc desiccation and age related disc desiccation changes. . . At the C6-C7 level, there is mild age related disc desiccation and disc space narrowing more so along the anterior disc margin. Small asymmetric disc bulge ridge complex focally larger centrally and to the right more so than left, compresses the ventral surface of the thecal sac and appears to minimally flatten the ventral surface of the spinal cord on the right. The overall central canal at this level is marginal to adequate. Exit foramina appear mildly narrowed as well. At the C5-C6 level, there is mild age related disc desiccation and mild disc space narrowing. Small asymmetric disc ridge complex minimally flattens the ventral surface of the thecal sac and spinal cord. Central canal appears adequate. The uncovertebral joints are mildly hypertrophic with bilateral foraminal narrowing left greater than right. At the C4-C5 level, there is mild age related disc desiccation. Disc space height relatively maintained. No disc herniation or significant disc bulge. Facets a prominent. The central canal and exit foramina adequate. Similar changes seen at the C3-C4 and C2-C3 levels. IMPRESSION: No evidence of demyelinating plaque formation seen within the cervical spine however plaque changes are again noted in the radha. Linear signal within the cervical cord on sagittal STIR sequence felt to represent either motion and/or Asher type artifact. Mild multilevel degenerative spondylosis as above.
[2017-11-09] MEDS: methylPREDNISolone 1 GM in Sodium Chloride 0.9% 250 ML IV SCH (18:10)
--- NOTE | 2017-11-09 20:34 | CARD ---
APPROVED REPORT EKG Measurement Heart [id number] <Conclusion> Normal sinus rhythm Normal ECG
[2017-11-10 07:04] LABS: LYMPH # 0.6 K/uL (1.0-4.3); LYMPH % 4.3 % (20.0-40.0); MEAN CELL VOLUME 65.9 fL (80.0-94.0); MEAN CORPUSCULAR HEMOGLOBIN 20.5 pg (27.0-31.0); MEAN CORPUSCULAR HGB CONC 31.1 g/dL (33.0-37.0); MEAN PLATELET VOLUME 9.9 fL (7.2-11.7); MONO # 0.1 K/uL (0.0-0.8); MONO % 0.6 % (0.0-10.0); NEUT # 12.3 K/uL (1.8-7.0); NEUT % 95.1 % (50.0-75.0); PLATELET COUNT 228 K/uL (130-400); RBC 5.87 Mil/uL (4.40-5.90); RED CELL DISTRIBUTION WIDTH 15.4 % (11.5-14.5); WHITE BLOOD COUNT 12.9 K/uL (4.8-10.8)
[2017-11-10 08:14] LABS: ALB/GLOB RATIO 1.3 (1.0-2.1); ALBUMIN 3.8 g/dL (3.5-5.0); ALT/SGPT 9 U/L (21-72); AST/SGOT 15 U/L (17-59); BLOOD UREA NITROGEN 24 mg/dL (9-20); GFR AFRICAN-AMERICAN > 60; GFR NON-AFRICAN AMERICAN > 60
[2017-11-10 08:26] LABS: BANDS 1 % (0-2); TOTAL CELLS COUNTED 100
[2017-11-10 08:27] LABS: ANISOCYTOSIS SLIGHT; HYPOCHROMIC SLIGHT; LYMPHOCYTE 4 % (20-40); MONOCYTE 1 % (0-10); NEUTROPHIL 94 % (50-75); PLATELET ESTIMATE NORMAL (NORMAL)
[2017-11-10 08:28] LABS: HYPERSEGMENTATION PRESENT; MICROCYTOSIS SLIGHT; TOXIC GRANULATION PRESENT
[2017-11-10 08:29] LABS: LARGE PLATELETS PRESENT; OVALOCYTES SLIGHT; TEARDROP CELLS SLIGHT
--- NOTE | 2017-11-10 08:43 | CP.PCM.PN ---
Subjective - Date & Time of Evaluation Date of Evaluation: 11/10/17 Time of Evaluation: 08:15 - Subjective Subjective: Patient reports feeling more tired this morning. He reported working with PT yesterday. He has full range of motion of his extremities. Walking is normal he reports, Yesterday he underwent MRI of the spine and this was not showing evidence of deymelinating areas however they did note changes in the radha region. He continues to be on the IV soulmedrol, pending on additional LP studies at this moment. He had some questions about MS today, he reported feeling depressed. Denied chest pain, denied shortness of breath, denied headache, denied blurry vision, eating is ok, denied bathroom problems Objective - Vital Signs/Intake and Output Vital Signs (last 24 hours): Temp Pulse Resp BP Pulse Ox 97.7 F 79 20 117/72 99 11/10/17 07:40 11/10/17 07:40 11/10/17 07:40 11/10/17 07:40 11/10/17 07:40 - Medications Medications: Current Medications Acetaminophen (Tylenol 325mg Tab) 650 mg PO Q6 PRN PRN Reason: Pain, Mild (1-3) Aspirin (Ecotrin) 81 mg PO DAILY [facility] Last Admin: 11/09/17 10:52 Dose: 81 mg Methylprednisolone 1 gm/ (Sodium Chloride) 250 mls @ 250 mls/hr IV Q24H [facility] Last Admin: 11/09/17 18:10 Dose: 250 mls/hr Ondansetron HCl (Zofran Inj) 4 mg IVP Q6 PRN PRN Reason: Nausea/Vomiting Pantoprazole Sodium (Protonix Ec Tab) 40 mg PO DAILY [facility] Last Admin: 11/09/17 10:52 Dose: 40 mg Rivaroxaban (Xarelto) 15 mg PO BID [facility] Last Admin: 11/08/17 18:00 Dose: 15 mg Rosuvastatin Calcium (Crestor) 40 mg PO HS [facility] Last Admin: 11/09/17 21:40 Dose: 40 mg - Labs Labs: 11/10/17 06:53 11/10/17 06:53 PT 12.8 SECONDS (9.7-12.2) H 11/08/17 00:29 INR 1.1 11/08/17 00:29 APTT 28 SECONDS (21-34) 11/08/17 00:29 - Constitutional Appears: Well, No Acute Distress - Head Exam Head Exam: ATRAUMATIC, NORMAL INSPECTION, NORMOCEPHALIC - Eye Exam Eye Exam: EOMI, Normal appearance, PERRL - ENT Exam ENT Exam: Mucous Membranes Moist - Respiratory Exam Respiratory Exam: Clear to Ausculation Bilateral, NORMAL BREATHING PATTERN - Cardiovascular Exam Cardiovascular Exam: REGULAR RHYTHM - GI/Abdominal Exam GI & Abdominal Exam: Soft, Normal Bowel Sounds - Neurological Exam Neurological Exam: Alert, Awake, CN II-XII Intact, Oriented x3 Neuro motor strength exam: Left Upper Extremity: 5, Right Upper Extremity: 4, Left Lower Extremity: 5, Right Lower Extremity: 5 - Psychiatric Exam Psychiatric exam: Depressed, Flat Affect - Skin Skin Exam: Normal Color, Warm Assessment and Plan - Assessment and Plan (Free Text) Assessment: Multiple Sclerosis 11/10: No acute events overnight. He remains on the IV solumedrol he needs a total of 5 days per neurology. The MRI of the C spine did not show any demylination there. 11/09: Patient is able to walk ok. He reports the right arm and right hand is return to normal. On exam 11/16. He denied dizziness, denied photophobia, denied headache. Pending further studies from the LP. He is on IV solumedrol. Pending the spinal MRI. -high dose statin and aspirin given -Neurology, Dr. Ty made aware and called; recommended the following f/u imaging: -CT shows right frontal lobe hypodensity ischemic vs inflammatory process; please refer to full report -Brain MRI: constellation of findings is most compatible with demyelinating plaques of multiple sclerosis with active demyelination in the right centrum semiovale, left centrum semiovale, left parietal subcortical white matter and right inferior radha. The largest cons centric demyelinating lesion in the right centrum semiovale measures 2.2 x 1.7cm. Mild global parenchymal volume loss, advanced for the patient's age. MRI of the cervical and thoracic spine with and without iv contrast recommended for complete evaluation of the spinal cord. -Head MRA: no evidence of occlusion, definite significant stenosis or saccular aneurysm; please refer to full report -Neck MRA: asymmetry in the caliber of the common carotid and internal carotid arteries, left larger than right, likely anatomic variant. No evidence of hemodynamically significant stenosis in the internal carotid arteries. Patent b/ l vertebral arteries. 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 Lumbar puncture was performed by Dr. Ty CSF evaluated for IgG index, Myelin Basic Protein, oligoclonal bands, cell count , protein and glucose. solumedrol 1000 mg daily for 5 days start Tysabri as an outpatient Chest Pain 11/09: troponins have been negative x 3, no more chest pain. Hyperlipidemia -Lipid Panel: Triglycerides-126, Cholesterol-222, LDL-136, HDL- 4 -Crestor 40mg Hx of DVT 11/10: Restart Xarelto today 11/09: Xarelto held for today -patient should be encouraged to do hypercoaguable workup once deemed safe to stop taking xarelto -strong family history Prophylaxis -GI prophylaxis not indicated
[2017-11-10] MEDS: Pantoprazole 40 mg EC Tab PO SCH (09:19)
--- NOTE | 2017-11-10 12:07 | CP.PCM.PN ---
Subjective - Date & Time of Evaluation Date of Evaluation: 11/10/17 Time of Evaluation: 12:05 - Subjective Subjective: Mr. Santiago was seen and examined at the bedside. He is alert, oriented in all spheres. He claims of mild tenderness around the LP puncture site, no s/s hematoma, no s/s infection. He is able to ambulate with steady gait. There was no untoward events overnight. Objective - Vital Signs/Intake and Output Vital Signs (last 24 hours): Temp Pulse Resp BP Pulse Ox 97.7 F 79 20 117/72 99 11/10/17 07:40 11/10/17 07:40 11/10/17 07:40 11/10/17 07:40 11/10/17 07:40 - Medications Medications: Current Medications Acetaminophen (Tylenol 325mg Tab) 650 mg PO Q6 PRN PRN Reason: Pain, Mild (1-3) Last Admin: 11/10/17 10:49 Dose: 650 mg Aspirin (Ecotrin) 81 mg PO DAILY [facility] Last Admin: 11/10/17 09:19 Dose: 81 mg Methylprednisolone 1 gm/ (Sodium Chloride) 250 mls @ 250 mls/hr IV Q24H [facility] Last Admin: 11/09/17 18:10 Dose: 250 mls/hr Ondansetron HCl (Zofran Inj) 4 mg IVP Q6 PRN PRN Reason: Nausea/Vomiting Pantoprazole Sodium (Protonix Ec Tab) 40 mg PO DAILY [facility] Last Admin: 11/10/17 09:19 Dose: 40 mg Rivaroxaban (Xarelto) 15 mg PO BID [facility] Last Admin: 11/10/17 09:19 Dose: 15 mg Rosuvastatin Calcium (Crestor) 40 mg PO HS [facility] Last Admin: 11/09/17 21:40 Dose: 40 mg - Labs Labs: 11/10/17 06:53 11/10/17 06:53 PT 12.8 SECONDS (9.7-12.2) H 11/08/17 00:29 INR 1.1 11/08/17 00:29 APTT 28 SECONDS (21-34) 11/08/17 00:29 - Constitutional Appears: No Acute Distress - Head Exam Head Exam: NORMAL INSPECTION - Neurological Exam Neurological Exam: Alert, Awake, Oriented x3 Neuro motor strength exam: Left Upper Extremity: 5, Right Upper Extremity: 5, Left Lower Extremity: 5, Right Lower Extremity: 5 Additional comments: Neurological unchanged from previous examination. Assessment and Plan (1) Multiple sclerosis Assessment & Plan: Case discussed with Dr. Ty, continue the 5 day course of IV solumedrol and continue GI prophylaxis. Benadryl 50 mg can be given for insomnia. Tylenol or ibuprofen can be given for pain. Pending results of CSF Status: Acute
[2017-11-10] MEDS: methylPREDNISolone 1 GM in Sodium Chloride 0.9% 250 ML IV SCH (17:33)
--- NOTE | 2017-11-11 07:52 | CP.PCM.PN ---
Subjective - Date & Time of Evaluation Date of Evaluation: 11/11/17 Time of Evaluation: 07:52 - Subjective Subjective: Mr. Santiago was seen and examined at the bedside. He is alert, oriented in all spheres. He claims of improving mild tenderness around the LP puncture site, no s/s hematoma, no s/s infection. He is able to ambulate with steady gait, but claims of feeling generalize body malaise. He reamins afebrile but with slight elevation of his WBC. CSF culture showed no growth.There was no untoward events overnight. Objective - Vital Signs/Intake and Output Vital Signs (last 24 hours): Temp Pulse Resp BP Pulse Ox 98 F 55 L 20 114/70 98 11/10/17 23:25 11/11/17 04:09 11/10/17 23:25 11/10/17 23:25 11/10/17 23:25 - Medications Medications: Current Medications Acetaminophen (Tylenol 325mg Tab) 650 mg PO Q6 PRN PRN Reason: Pain, Mild (1-3) Last Admin: 11/10/17 10:49 Dose: 650 mg Aspirin (Ecotrin) 81 mg PO DAILY [facility] Last Admin: 11/10/17 09:19 Dose: 81 mg Methylprednisolone 1 gm/ (Sodium Chloride) 250 mls @ 250 mls/hr IV Q24H [facility] Last Admin: 11/10/17 17:33 Dose: 250 mls/hr Ondansetron HCl (Zofran Inj) 4 mg IVP Q6 PRN PRN Reason: Nausea/Vomiting Pantoprazole Sodium (Protonix Ec Tab) 40 mg PO DAILY [facility] Last Admin: 11/10/17 09:19 Dose: 40 mg Rivaroxaban (Xarelto) 15 mg PO BID [facility] Last Admin: 11/10/17 17:33 Dose: 15 mg Rosuvastatin Calcium (Crestor) 40 mg PO HS [facility] Last Admin: 11/10/17 21:38 Dose: 40 mg - Labs Labs: 11/10/17 06:53 11/10/17 06:53 PT 12.8 SECONDS (9.7-12.2) H 11/08/17 00:29 INR 1.1 11/08/17 00:29 APTT 28 SECONDS (21-34) 11/08/17 00:29 - Constitutional Appears: No Acute Distress - Head Exam Head Exam: NORMAL INSPECTION - Neurological Exam Neurological Exam: Alert, Awake, Oriented x3 Neuro motor strength exam: Left Upper Extremity: 5, Right Upper Extremity: 5, Left Lower Extremity: 5, Right Lower Extremity: 5 Additional comments: Neurological examination unchanged from previous examination. Assessment and Plan (1) Multiple sclerosis Assessment & Plan: Case discussed with Dr. Guerin, continue the 5 day course of IV solumedrol and continue GI prophylaxis. Benadryl 50 mg can be given for insomnia. Tylenol or ibuprofen can be given for pain. Pending results of CSF Status: Acute
[2017-11-11 08:29] LABS: HEMOGLOBIN 12.3 g/dL (12.0-18.0); LYMPH # 0.5 K/uL (1.0-4.3); LYMPH % 4.9 % (20.0-40.0); MEAN CELL VOLUME 65.3 fL (80.0-94.0); MEAN CORPUSCULAR HEMOGLOBIN 21.2 pg (27.0-31.0); MEAN CORPUSCULAR HGB CONC 32.5 g/dL (33.0-37.0); MEAN PLATELET VOLUME 10.4 fL (7.2-11.7); MONO # 0.1 K/uL (0.0-0.8); MONO % 0.8 % (0.0-10.0); NEUT # 9.7 K/uL (1.8-7.0); NEUT % 94.3 % (50.0-75.0); PLATELET COUNT 218 K/uL (130-400); RBC 5.78 Mil/uL (4.40-5.90); RED CELL DISTRIBUTION WIDTH 15.7 % (11.5-14.5); WHITE BLOOD COUNT 10.3 K/uL (4.8-10.8)
[2017-11-11 08:50] LABS: ALB/GLOB RATIO 1.4 (1.0-2.1); ALBUMIN 3.9 g/dL (3.5-5.0); ALT/SGPT 13 U/L (21-72); AST/SGOT 13 U/L (17-59); BLOOD UREA NITROGEN 20 mg/dL (9-20); CALCIUM 8.6 mg/dl (8.6-10.4); GFR AFRICAN-AMERICAN > 60; GFR NON-AFRICAN AMERICAN > 60
[2017-11-11 09:02] LABS: ANISOCYTOSIS SLIGHT; LYMPHOCYTE 3 % (20-40); MONOCYTE 1 % (0-10); NEUTROPHIL 96 % (50-75); PLATELET ESTIMATE NORMAL (NORMAL); TOTAL CELLS COUNTED 100
[2017-11-11 09:03] LABS: HYPOCHROMIC SLIGHT; MICROCYTOSIS MODERATE; POLYCHROMIC SLIGHT
[2017-11-11 09:04] LABS: OVALOCYTES SLIGHT
[2017-11-11] MEDS: Pantoprazole 40 mg EC Tab PO SCH (09:25)
[2017-11-11] MEDS ORDERED: Gadodiamide 287 mg/ml 20 ml IV ONE (11:50)
--- NOTE | 2017-11-11 15:15 | CP.PCM.PN ---
<Patito Camara - Last Filed: 11/11/17 15:08> Subjective - Date & Time of Evaluation Date of Evaluation: 11/11/17 Time of Evaluation: 07:00 - Subjective Subjective: PGY1- Medicine Note Patient seen and examined at bedside and in no acute distress. Patient says he was very lethargic yesterday, but is feeling slightly less so today. Patient also complains of generalized body aches that come and go. Patient has no weakness in his extremities and is able to ambulate with no problems. Patient denies any nausea, vomiting, abdominal pain, diarrhea, constipation. Objective - Vital Signs/Intake and Output Vital Signs (last 24 hours): Temp Pulse Resp BP Pulse Ox 97.8 F 64 20 130/83 99 11/11/17 08:35 11/11/17 08:35 11/11/17 08:35 11/11/17 08:35 11/11/17 08:35 - Medications Medications: Current Medications Acetaminophen (Tylenol 325mg Tab) 650 mg PO Q6 PRN PRN Reason: Pain, Mild (1-3) Last Admin: 11/10/17 10:49 Dose: 650 mg Aspirin (Ecotrin) 81 mg PO DAILY [facility] Last Admin: 11/11/17 09:25 Dose: 81 mg Diphenhydramine HCl (Benadryl) 50 mg PO ONCE ONE Stop: 11/11/17 22:01 Methylprednisolone 1 gm/ (Sodium Chloride) 250 mls @ 250 mls/hr IV Q24H [facility] Last Admin: 11/10/17 17:33 Dose: 250 mls/hr Ondansetron HCl (Zofran Inj) 4 mg IVP Q6 PRN PRN Reason: Nausea/Vomiting Pantoprazole Sodium (Protonix Ec Tab) 40 mg PO DAILY [facility] Last Admin: 11/11/17 09:25 Dose: 40 mg Rivaroxaban (Xarelto) 15 mg PO BID [facility] Last Admin: 11/11/17 09:25 Dose: 15 mg Rosuvastatin Calcium (Crestor) 40 mg PO HS [facility] Last Admin: 11/10/17 21:38 Dose: 40 mg - Labs Labs: 11/11/17 08:20 11/11/17 08:20 PT 12.8 SECONDS (9.7-12.2) H 11/08/17 00:29 INR 1.1 11/08/17 00:29 APTT 28 SECONDS (21-34) 11/08/17 00:29 - Constitutional Appears: Non-toxic, No Acute Distress - Head Exam Head Exam: ATRAUMATIC, NORMAL INSPECTION, NORMOCEPHALIC - Eye Exam Eye Exam: EOMI, Normal appearance - ENT Exam ENT Exam: Mucous Membranes Moist - Respiratory Exam Respiratory Exam: Clear to Ausculation Bilateral, NORMAL BREATHING PATTERN. absent: Rales, Rhonchi, Wheezes, Respiratory Distress, Stridor - Cardiovascular Exam Cardiovascular Exam: REGULAR RHYTHM, RRR, +S1, +S2 - GI/Abdominal Exam GI & Abdominal Exam: Soft, Normal Bowel Sounds. absent: Tenderness - Extremities Exam Extremities Exam: Full ROM, Normal Inspection. absent: Pedal Edema - Neurological Exam Neurological Exam: Alert, Awake, Oriented x3 Neuro motor strength exam: Left Upper Extremity: 5, Right Upper Extremity: 5, Left Lower Extremity: 5, Right Lower Extremity: 5 - Psychiatric Exam Psychiatric exam: Normal Affect, Normal Mood - Skin Skin Exam: Intact, Normal Color, Warm Assessment and Plan - Assessment and Plan (Free Text) Assessment: Multiple Sclerosis 11/10: No acute events overnight. He remains on the IV solumedrol he needs a total of 5 days per neurology. The MRI of the C spine did not show any demylination there. -high dose statin and aspirin given -Neurology, Dr. Ty made aware and called; recommended the following f/u imaging: -CT shows right frontal lobe hypodensity ischemic vs inflammatory process; please refer to full report -Brain MRI: constellation of findings is most compatible with demyelinating plaques of multiple sclerosis with active demyelination in the right centrum semiovale, left centrum semiovale, left parietal subcortical white matter and right inferior radha. The largest cons centric demyelinating lesion in the right centrum semiovale measures 2.2 x 1.7cm. Mild global parenchymal volume loss, advanced for the patient's age. MRI of the cervical and thoracic spine with and without iv contrast recommended for complete evaluation of the spinal cord. -Head MRA: no evidence of occlusion, definite significant stenosis or saccular aneurysm; please refer to full report -Neck MRA: asymmetry in the caliber of the common carotid and internal carotid arteries, left larger than right, likely anatomic variant. No evidence of hemodynamically significant stenosis in the internal carotid arteries. Patent b/ l vertebral arteries. 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 Lumbar puncture was performed by Dr. Ty CSF evaluated for Ig.1 -Myelin Basic Protein, oligoclonal bands, cell count, protein and glucose. -KIM 6 prof negative -solumedrol 1000 mg daily for 5 days -start Tysabri as an outpatient Chest Pain resolved 11/09: troponins have been negative x 3 Hyperlipidemia -Lipid Panel: Triglycerides-126, Cholesterol-222, LDL-136, HDL- 4 -Crestor 40mg Hx of DVT 11/10: Restarted Xarelto 11/09: Xarelto held for today -patient should be encouraged to do hypercoaguable workup once deemed safe to stop taking xarelto -strong family history Prophylaxis -GI prophylaxis not indicated <Brandon Mann - Last Filed: 11/11/17 19:20> Objective - Vital Signs/Intake and Output Vital Signs (last 24 hours): Temp Pulse Resp BP Pulse Ox 98.0 F 63 20 109/67 98 11/11/17 15:44 11/11/17 17:08 11/11/17 15:44 11/11/17 15:44 11/11/17 15:44 - Medications Medications: Current Medications Acetaminophen (Tylenol 325mg Tab) 650 mg PO Q6 PRN PRN Reason: Pain, Mild (1-3) Last Admin: 11/10/17 10:49 Dose: 650 mg Aspirin (Ecotrin) 81 mg PO DAILY [facility] Last Admin: 11/11/17 09:25 Dose: 81 mg Diphenhydramine HCl (Benadryl) 50 mg PO ONCE ONE Stop: 11/11/17 22:01 Diphenhydramine HCl (Benadryl) 50 mg PO HS PRN PRN Reason: Insomnia Methylprednisolone 1 gm/ (Sodium Chloride) 250 mls @ 250 mls/hr IV Q24H [facility] Last Admin: 11/11/17 16:38 Dose: 250 mls/hr Ondansetron HCl (Zofran Inj) 4 mg IVP Q6 PRN PRN Reason: Nausea/Vomiting Pantoprazole Sodium (Protonix Ec Tab) 40 mg PO DAILY [facility] Last Admin: 11/11/17 09:25 Dose: 40 mg Rivaroxaban (Xarelto) 15 mg PO BID [facility] Last Admin: 11/11/17 17:40 Dose: 15 mg Rosuvastatin Calcium (Crestor) 40 mg PO HS [facility] Last Admin: 11/10/17 21:38 Dose: 40 mg - Labs Labs: 11/11/17 08:20 11/11/17 08:20 PT 12.8 SECONDS (9.7-12.2) H 11/08/17 00:29 INR 1.1 11/08/17 00:29 APTT 28 SECONDS (21-34) 11/08/17 00:29 Attending/Attestation - Attestation I have personally seen and examined this patient.: Yes I have fully participated in the care of the patient.: Yes I have reviewed all pertinent clinical information, including history, physical exam and plan: Yes Notes (Text): 11/11/17 19:12 Patient was seen and examined at 10:45 AM Exam, assesssment and plan were gone over with the resident. Also on ROS: Bilateral UE and LE proximal muscle and chest soreness that comes and goes NO longer with weakness of the Right UE Has not moved bowels in 3 days but states that he can not and will not move his bowels if he is not at home Eats 1 meal a day and this normal for him Trouble sleeping since his admission Also on Exam: Spinal Tap Site in Lower Lumbar area without signs of cellulitis Bilateral UE that is 5/5 strength with flexion and extension against my resistance F/U CSF Oligoclonal Bands Encouraged him to not hold his stool and utilize the toilet: added colace 100 mg PO 3x/day Benadryl 50 mg PO x 1 dose tonight to help him with sleep Will discharge on 11/12/17 after he completes 5 days of IV steroids Spoke with [employer] Deloris to make sure that the patient has signed up for [facility] so that he may follow up with our clinic so that they can help arrange for Neurology follow up and treatments with Tysabri 300 mg IV [id number] as outpatient Brandon Mann D.O.
[2017-11-11] MEDS: methylPREDNISolone 1 GM in Sodium Chloride 0.9% 250 ML IV SCH (16:38)
[2017-11-11 16:45] VITALS: O2SAT 98
--- NOTE | 2017-11-12 08:18 | CP.PCM.DIS ---
<HoaPatito L. - Last Filed: 11/12/17 17:32> Provider - Provider Date of Admission: 11/08/17 02:49 Attending physician: Blaze Sargent MD Primary care physician: Non [facility] Provider Consults: Dr. Ty (psych) Time Spent in preparation of Discharge (in minutes): 40 Diagnosis - Discharge Diagnosis (1) Multiple sclerosis Status: Acute Priority: High (2) Chest pain Status: Resolved Hospital Course - Lab Results Lab Results: Micro Results 11/08/17 Unknown Cerebral Spinal Fluid Gram Stain - Final 11/08/17 Unknown Cerebral Spinal Fluid CSF Culture - Preliminary NO GROWTH AFTER 3 DAYS Most Recent Lab Values WBC 10.3 K/uL (4.8-10.8) 11/11/17 08:20 RBC 5.78 Mil/uL (4.40-5.90) 11/11/17 08:20 Hgb 12.3 g/dL (12.0-18.0) 11/11/17 08:20 Hct 37.7 % (35.0-51.0) 11/11/17 08:20 MCV 65.3 fL (80.0-94.0) L 11/11/17 08:20 MCH 21.2 pg (27.0-31.0) L 11/11/17 08:20 MCHC 32.5 g/dL (33.0-37.0) L 11/11/17 08:20 RDW 15.7 % (11.5-14.5) H 11/11/17 08:20 Plt Count 218 K/uL (130-400) 11/11/17 08:20 MPV 10.4 fL (7.2-11.7) 11/11/17 08:20 Neut % (Auto) 94.3 % (50.0-75.0) H 11/11/17 08:20 Lymph % (Auto) 4.9 % (20.0-40.0) L 11/11/17 08:20 Newton % (Auto) 0.8 % (0.0-10.0) 11/11/17 08:20 Eos % (Auto) 0.0 % (0.0-4.0) 11/11/17 08:20 Baso % (Auto) 0.0 % (0.0-2.0) 11/11/17 08:20 Neut # (Auto) 9.7 K/uL (1.8-7.0) H 11/11/17 08:20 Lymph # (Auto) 0.5 K/uL (1.0-4.3) L 11/11/17 08:20 Newton # (Auto) 0.1 K/uL (0.0-0.8) 11/11/17 08:20 Eos # (Auto) 0.0 K/uL (0.0-0.7) 11/11/17 08:20 Baso # (Auto) 0.0 K/uL (0.0-0.2) 11/11/17 08:20 Neutrophils % (Manual) 96 % (50-75) H 11/11/17 08:20 Band Neutrophils % 1 % (0-2) 11/10/17 06:53 Lymphocytes % (Manual) 3 % (20-40) L 11/11/17 08:20 Monocytes % (Manual) 1 % (0-10) 11/11/17 08:20 Differential Comment 11/08/17 00:29 Hypersegmented Polys Present 11/10/17 06:53 Toxic Granulation Present 11/10/17 06:53 Platelet Estimate Normal (NORMAL) 11/11/17 08:20 Large Platelets Present 11/10/17 06:53 Polychromasia Slight 11/11/17 08:20 Hypochromasia (manual) Slight 11/11/17 08:20 Anisocytosis (manual) Slight 11/11/17 08:20 Microcytosis (manual) Moderate 11/11/17 08:20 Tear Drop Cells Slight 11/10/17 06:53 Ovalocytes Slight 11/11/17 08:20 PT 12.8 SECONDS (9.7-12.2) H 11/08/17 00:29 INR 1.1 11/08/17 00:29 APTT 28 SECONDS (21-34) 11/08/17 00:29 D-Dimer, Quantitative < 200 ng/mlDDU (0-243) 11/08/17 00:29 Sodium 142 mmol/L (132-148) 11/11/17 08:20 Potassium 4.3 mmol/L (3.6-5.2) 11/11/17 08:20 Chloride 100 mmol/L (98-107) 11/11/17 08:20 Carbon Dioxide 30 mmol/L (22-30) 11/11/17 08:20 Anion Gap 16 (10-20) 11/11/17 08:20 BUN 20 mg/dL (9-20) 11/11/17 08:20 Creatinine 0.7 mg/dL (0.8-1.5) L 11/11/17 08:20 Est GFR ( Amer) > 60 11/11/17 08:20 Est GFR (Non-Af Amer) > 60 11/11/17 08:20 Random Glucose 124 mg/dL (75-110) H 11/11/17 08:20 Hemoglobin A1c 5.7 % (4.2-6.5) 11/08/17 03:59 Calcium 8.6 mg/dl (8.6-10.4) 11/11/17 08:20 Total Bilirubin 0.4 mg/dL (0.2-1.3) 11/11/17 08:20 AST 13 U/L (17-59) L 11/11/17 08:20 ALT 13 U/L (21-72) L D 11/11/17 08:20 Alkaline Phosphatase 39 U/L (38-126) 11/11/17 08:20 Total Creatine Kinase 36 U/L (55-170) L 11/08/17 12:07 CK-MB (Mass) < 0.22 ng/mL (0.0-3.38) 11/08/17 12:07 Troponin I < 0.0120 ng/mL (0.00-0.120) 11/08/17 12:07 Total Protein 6.7 g/dL (6.3-8.3) 11/11/17 08:20 Albumin 3.9 g/dL (3.5-5.0) 11/11/17 08:20 Globulin 2.8 gm/dL (2.2-3.9) 11/11/17 08:20 Albumin/Globulin Ratio 1.4 (1.0-2.1) 11/11/17 08:20 Triglycerides 126 mg/dL (0-149) 11/08/17 04:17 Cholesterol 222 mg/dL (0-199) H 11/08/17 04:17 LDL Cholesterol Direct 136 mg/dL (0-129) H 11/08/17 04:17 HDL Cholesterol 44 mg/dL (30-70) 11/08/17 04:17 Myelin Basic Protein TNP 11/08/17 16:39 TSH 3rd Generation 2.10 mIU/L (0.46-4.68) 11/08/17 04:17 Urine Color Yellow (YELLOW) 11/08/17 07:45 Urine Clarity Hazy (Clear) 11/08/17 07:45 Urine pH 6.0 (5.0-8.0) 11/08/17 07:45 Ur Specific Campton 1.021 (1.003-1.030) 11/08/17 07:45 Urine Protein Negative mg/dL (NEGATIVE) 11/08/17 07:45 Urine Glucose (UA) Normal mg/dL (Normal) 11/08/17 07:45 Urine Ketones Negative mg/dL (NEGATIVE) 11/08/17 07:45 Urine Blood Negative (NEGATIVE) 11/08/17 07:45 Urine Nitrate Negative (NEGATIVE) 11/08/17 07:45 Urine Bilirubin Negative (NEGATIVE) 11/08/17 07:45 Urine Urobilinogen 2.0 mg/dL (0.2-1.0) 11/08/17 07:45 Ur Leukocyte Esterase Neg Lawanda/uL (Negative) 11/08/17 07:45 Urine WBC (Auto) 1 /hpf (0-5) 11/08/17 07:45 Urine RBC (Auto) < 1 /hpf (0-3) 11/08/17 07:45 Urine Bacteria Rare (<OCC) 11/08/17 07:45 Fluid Type Spinal fluid 11/08/17 20:22 CSF Volume TEST NOT PERFORMED 11/08/17 20:22 CSF Appearance Clear/colorless (CLEAR) 11/08/17 20:22 CSF WBC 3.0 /mm3 (0.0-5.0) 11/08/17 20:22 CSF RBC 0.0 /mm3 (0.0-0.0) 11/08/17 20:22 CSF Total Cell Counted TEST NOT PERFORMED 11/08/17 20:22 CSF Lymphocytes % (0-0) 11/08/17 20:22 CSF Monos/Macrophages % (0-0) 11/08/17 20:22 CSF Comment TEST NOT PERFORMED 11/08/17 20:22 IgG 966.1 mg/dL (700.0-1600.0) 11/08/17 16:11 KIM 6 Profile Negative (NEGATIVE) 11/08/17 16:11 RPR Nonreactive (NONREACTIVE) 11/08/17 04:17 HIV 1&2 Antibody Screen Negative (NEGATIVE) 11/08/17 04:17 - Hospital Course Hospital Course: HPI: "This patient is a 37yo M w/ a PMhx of DVT in the LLE diagnosed last month , unprovoked, who never underwent further blood testing as "if it gets worse I will do it then but I don't need to see a fire ranger now" currently on Xarelto , therapeutic, for a LLE DVT. He states that his sister as well had a LLE DVT when she was , and therefore must be unrelated. He is complaining of right arm weakness and chest pain since 7pm. 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 He states he also has intermittent chest pain, described as dull, not associated with any other symptoms. Denies THAO, blurry/double vision, changes in vision, change in taste, change in hearing, SOB, diaphoresis, feeling of impending doom/panic, abdominal pain, N/V/D, dysuria/freq/urg or lower extremity pain/swelling." Patient was admitted for right arm weakness and chest pain. Patient had a head CT done to rule out stroke which showed right frontal lobe hypodensity ischemic vs inflammatory process. Crestor and Aspirin were given to the patient daily. Lipid Panel was Triglycerides-126, Cholesterol-222, LDL-136, HDL- 4. Dr. Ty was consulted who requested for a brain MRI and head and neck MRA to be done. Brain MRI showed a constellation of findings and is most compatible with demyelinating plaques of multiple sclerosis with active demyelination in the right centrum semiovale, left centrum semiovale, left parietal subcortical white matter and right inferior radha. The largest cons centric demyelinating lesion in the right centrum semiovale measures 2.2 x 1.7cm. Mild global parenchymal volume loss, advanced for the patient's age. Dr. Ty agreed that patient most likely has multiple sclerosis. MRI of the cervical and thoracic spine with and without iv contrast recommended for complete evaluation of the spinal cord. Head MRA showed no evidence of occlusion, definite significant stenosis or saccular aneurysm; please refer to full report Neck MRA showed asymmetry in the caliber of the common carotid and internal carotid arteries, left larger than right, likely anatomic variant. No evidence of hemodynamically significant stenosis in the internal carotid arteries. Patent b/l vertebral arteries. 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 C Spine MRI w/ and w/out contrast showed no evidence of demyelinating plaque formation within cervical spine however plaque changes are again noted in radha. Patient's symptoms completely resolved with steroid administration. Lumbar puncture was performed by Dr. Ty and evaluated for IgG index, Myelin Basic Protein, oligoclonal bands, cell count, protein and glucose. Solumedrol 1000mg IV daily was administered for 5 days. Patient will need to follow up with Dr. Ty to be started Tysabri as an outpatient. Patient's chest pain pain resolved. Troponins were negative and there were no EKG changes. Patient's lipid panel was checked and found to be Triglycerides-126 , Cholesterol-222, LDL-136, HDL- 4. Patient had dopplers done because of previous history of DVT. Thrombosis was found in the large saphenous vein. Patient does not need to be on anticoagulation for this superficial vein. This is a summary of the patient's hospital course. Please see chart for full details. Discharge Exam - Additional Findings Additional findings: - Constitutional Appears: Non-toxic, No Acute Distress - Head Exam Head Exam: ATRAUMATIC, NORMAL INSPECTION, NORMOCEPHALIC - Eye Exam Eye Exam: EOMI, Normal appearance - ENT Exam ENT Exam: Mucous Membranes Moist - Respiratory Exam Respiratory Exam: Clear to Ausculation Bilateral, NORMAL BREATHING PATTERN. absent: Rales, Rhonchi, Wheezes, Respiratory Distress, Stridor - Cardiovascular Exam Cardiovascular Exam: REGULAR RHYTHM, RRR, +S1, +S2 - GI/Abdominal Exam GI & Abdominal Exam: Soft, Normal Bowel Sounds. absent: Tenderness - Extremities Exam Extremities Exam: Full ROM, Normal Inspection. absent: Pedal Edema - Neurological Exam Neurological Exam: Alert, Awake, Oriented x3 Neuro motor strength exam: Left Upper Extremity: 5, Right Upper Extremity: 5, Left Lower Extremity: 5, Right Lower Extremity: 5 - Psychiatric Exam Psychiatric exam: Normal Affect, Normal Mood - Skin Skin Exam: Intact, Normal Color, Warm Discharge Plan - Follow Up Plan Condition: FAIR Disposition: HOME/ ROUTINE Instructions: Heart Healthy Diet, Smoking: Not Just Harmful to Your Lungs and Heart, Chest Pain (DC), Quitting Smoking, Multiple Sclerosis, Adult (DC) Additional Instructions: Patient stable for discharge as per Dr. Mann. 1. Patient to make an appointment at Clinic either at [facility] ([phone]) or [place] ([phone]) within 10 days. 2. Patient to also call Dr. Ty (neurology) ([phone]) to make an appointment to receive the Tysabri infusion as an outpatient within 1 week. 3. Patient to please stop taking Xarelto. Patient to please return to Emergency Department if symptoms return. Patient explained instructions who understands and agrees. [facility]: [facility]] [facility] [Provider Group] Wilton Ty MD [Staff Provider] - Non [facility] Provider, [Primary Care Provider] - <Brandon Mann - Last Filed: 11/12/17 18:57> Provider - Provider Date of Admission: 11/08/17 02:49 Attending physician: Blaze Sargent MD Primary care physician: Non [facility] Provider Hospital Course - Lab Results Lab Results: Micro Results 11/08/17 Unknown Cerebral Spinal Fluid Gram Stain - Final 11/08/17 Unknown Cerebral Spinal Fluid CSF Culture - Preliminary NO GROWTH AFTER 4 DAYS Most Recent Lab Values WBC 8.1 K/uL (4.8-10.8) 11/12/17 08:50 RBC 5.88 Mil/uL (4.40-5.90) 11/12/17 08:50 Hgb 12.6 g/dL (12.0-18.0) 11/12/17 08:50 Hct 38.6 % (35.0-51.0) 11/12/17 08:50 MCV 65.6 fL (80.0-94.0) L 11/12/17 08:50 MCH 21.4 pg (27.0-31.0) L 11/12/17 08:50 MCHC 32.7 g/dL (33.0-37.0) L 11/12/17 08:50 RDW 15.2 % (11.5-14.5) H 11/12/17 08:50 Plt Count 206 K/uL (130-400) 11/12/17 08:50 MPV 10.3 fL (7.2-11.7) 11/12/17 08:50 Neut % (Auto) 93.7 % (50.0-75.0) H 11/12/17 08:50 Lymph % (Auto) 5.1 % (20.0-40.0) L 11/12/17 08:50 Newton % (Auto) 1.2 % (0.0-10.0) 11/12/17 08:50 Eos % (Auto) 0.0 % (0.0-4.0) 11/12/17 08:50 Baso % (Auto) 0.0 % (0.0-2.0) 11/12/17 08:50 Neut # (Auto) 7.6 K/uL (1.8-7.0) H 11/12/17 08:50 Lymph # (Auto) 0.4 K/uL (1.0-4.3) L 11/12/17 08:50 Newton # (Auto) 0.1 K/uL (0.0-0.8) 11/12/17 08:50 Eos # (Auto) 0.0 K/uL (0.0-0.7) 11/12/17 08:50 Baso # (Auto) 0.0 K/uL (0.0-0.2) 11/12/17 08:50 Neutrophils % (Manual) 95 % (50-75) H 11/12/17 08:50 Band Neutrophils % 1 % (0-2) 11/10/17 06:53 Lymphocytes % (Manual) 4 % (20-40) L 11/12/17 08:50 Monocytes % (Manual) 1 % (0-10) 11/12/17 08:50 Differential Comment 11/08/17 00:29 Hypersegmented Polys Present 11/10/17 06:53 Toxic Granulation Present 11/10/17 06:53 Platelet Estimate Normal (NORMAL) 11/12/17 08:50 Large Platelets Present 11/10/17 06:53 Polychromasia Slight 11/11/17 08:20 Hypochromasia (manual) Slight 11/12/17 08:50 Anisocytosis (manual) Slight 11/12/17 08:50 Microcytosis (manual) Slight 11/12/17 08:50 Target Cells Slight 11/12/17 08:50 Tear Drop Cells Slight 11/10/17 06:53 Ovalocytes Slight 11/11/17 08:20 PT 12.8 SECONDS (9.7-12.2) H 11/08/17 00:29 INR 1.1 11/08/17 00:29 APTT 28 SECONDS (21-34) 11/08/17 00:29 D-Dimer, Quantitative < 200 ng/mlDDU (0-243) 11/08/17 00:29 Sodium 141 mmol/L (132-148) 11/12/17 08:50 Potassium 4.0 mmol/L (3.6-5.2) 11/12/17 08:50 Chloride 98 mmol/L (98-107) 11/12/17 08:50 Carbon Dioxide 30 mmol/L (22-30) 11/12/17 08:50 Anion Gap 17 (10-20) 11/12/17 08:50 BUN 21 mg/dL (9-20) H 11/12/17 08:50 Creatinine 0.8 mg/dL (0.8-1.5) 11/12/17 08:50 Est GFR ( Amer) > 60 11/12/17 08:50 Est GFR (Non-Af Amer) > 60 11/12/17 08:50 Random Glucose 165 mg/dL (75-110) H 11/12/17 08:50 Hemoglobin A1c 5.7 % (4.2-6.5) 11/08/17 03:59 Calcium 8.3 mg/dl (8.6-10.4) L 11/12/17 08:50 Total Bilirubin 0.4 mg/dL (0.2-1.3) 11/12/17 08:50 AST 15 U/L (17-59) L 11/12/17 08:50 ALT 12 U/L (21-72) L 11/12/17 08:50 Alkaline Phosphatase 41 U/L (38-126) 11/12/17 08:50 Total Creatine Kinase 36 U/L (55-170) L 11/08/17 12:07 CK-MB (Mass) < 0.22 ng/mL (0.0-3.38) 11/08/17 12:07 Troponin I < 0.0120 ng/mL (0.00-0.120) 11/08/17 12:07 Total Protein 6.6 g/dL (6.3-8.3) 11/12/17 08:50 Albumin 3.8 g/dL (3.5-5.0) 11/12/17 08:50 Globulin 2.8 gm/dL (2.2-3.9) 11/12/17 08:50 Albumin/Globulin Ratio 1.4 (1.0-2.1) 11/12/17 08:50 Triglycerides 126 mg/dL (0-149) 11/08/17 04:17 Cholesterol 222 mg/dL (0-199) H 11/08/17 04:17 LDL Cholesterol Direct 136 mg/dL (0-129) H 11/08/17 04:17 HDL Cholesterol 44 mg/dL (30-70) 11/08/17 04:17 Myelin Basic Protein TNP 11/08/17 16:39 TSH 3rd Generation 2.10 mIU/L (0.46-4.68) 11/08/17 04:17 Urine Color Yellow (YELLOW) 11/08/17 07:45 Urine Clarity Hazy (Clear) 11/08/17 07:45 Urine pH 6.0 (5.0-8.0) 11/08/17 07:45 Ur Specific [place] 1.021 (1.003-1.030) 11/08/17 07:45 Urine Protein Negative mg/dL (NEGATIVE) 11/08/17 07:45 Urine Glucose (UA) Normal mg/dL (Normal) 11/08/17 07:45 Urine Ketones Negative mg/dL (NEGATIVE) 11/08/17 07:45 Urine Blood Negative (NEGATIVE) 11/08/17 07:45 Urine Nitrate Negative (NEGATIVE) 11/08/17 07:45 Urine Bilirubin Negative (NEGATIVE) 11/08/17 07:45 Urine Urobilinogen 2.0 mg/dL (0.2-1.0) 11/08/17 07:45 Ur Leukocyte Esterase Neg Lawanda/uL (Negative) 11/08/17 07:45 Urine WBC (Auto) 1 /hpf (0-5) 11/08/17 07:45 Urine RBC (Auto) < 1 /hpf (0-3) 11/08/17 07:45 Urine Bacteria Rare (<OCC) 11/08/17 07:45 Fluid Type Spinal fluid 11/08/17 20:22 CSF Volume TEST NOT PERFORMED 11/08/17 20:22 CSF Appearance Clear/colorless (CLEAR) 11/08/17 20:22 CSF WBC 3.0 /mm3 (0.0-5.0) 11/08/17 20:22 CSF RBC 0.0 /mm3 (0.0-0.0) 11/08/17 20:22 CSF Total Cell Counted TEST NOT PERFORMED 11/08/17 20:22 CSF Lymphocytes % (0-0) 11/08/17 20:22 CSF Monos/Macrophages % (0-0) 11/08/17 20:22 CSF Comment TEST NOT PERFORMED 11/08/17 20:22 IgG 966.1 mg/dL (700.0-1600.0) 11/08/17 16:11 KIM 6 Profile Negative (NEGATIVE) 11/08/17 16:11 RPR Nonreactive (NONREACTIVE) 11/08/17 04:17 HIV 1&2 Antibody Screen Negative (NEGATIVE) 11/08/17 04:17 Attending/Attestation - Attestation I have personally seen and examined this patient.: Yes I have fully participated in the care of the patient.: Yes I have reviewed all pertinent clinical information, including history, physical exam and plan: Yes Notes (Text): 11/12/17 18:56 Patient was seen and examined shortly after resident. Exam, assessment and plan, and discharge instructions were gone over with the resident. Discharge plan was also gone over with the patient and he expressed understanding. Brandon Mann D.O.
[2017-11-12 08:35] VITALS: BP 119/70; TEMP 97.5
[2017-11-12 09:04] LABS: HEMOGLOBIN 12.6 g/dL (12.0-18.0); LYMPH # 0.4 K/uL (1.0-4.3); LYMPH % 5.1 % (20.0-40.0); MEAN CELL VOLUME 65.6 fL (80.0-94.0); MEAN CORPUSCULAR HEMOGLOBIN 21.4 pg (27.0-31.0); MEAN CORPUSCULAR HGB CONC 32.7 g/dL (33.0-37.0); MEAN PLATELET VOLUME 10.3 fL (7.2-11.7); MONO # 0.1 K/uL (0.0-0.8); MONO % 1.2 % (0.0-10.0); NEUT # 7.6 K/uL (1.8-7.0); NEUT % 93.7 % (50.0-75.0); PLATELET COUNT 206 K/uL (130-400); RBC 5.88 Mil/uL (4.40-5.90); RED CELL DISTRIBUTION WIDTH 15.2 % (11.5-14.5); WHITE BLOOD COUNT 8.1 K/uL (4.8-10.8)
[2017-11-12 09:14] VITALS: PULSE 94
[2017-11-12 09:18] LABS: ALB/GLOB RATIO 1.4 (1.0-2.1); ALBUMIN 3.8 g/dL (3.5-5.0); ALT/SGPT 12 U/L (21-72); AST/SGOT 15 U/L (17-59); BLOOD UREA NITROGEN 21 mg/dL (9-20); CALCIUM 8.3 mg/dl (8.6-10.4); GFR AFRICAN-AMERICAN > 60; GFR NON-AFRICAN AMERICAN > 60
[2017-11-12 10:13] LABS: ANISOCYTOSIS SLIGHT; LYMPHOCYTE 4 % (20-40); MICROCYTOSIS SLIGHT; MONOCYTE 1 % (0-10); NEUTROPHIL 95 % (50-75); PLATELET ESTIMATE NORMAL (NORMAL); TOTAL CELLS COUNTED 100
[2017-11-12 10:14] LABS: HYPOCHROMIC SLIGHT; TARGET CELLS SLIGHT
[2017-11-12] MEDS: Pantoprazole 40 mg EC Tab PO SCH (10:50)
[2017-11-12] MEDS ORDERED: methylPREDNISolone 1 GM in Sodium Chloride 0.9% 250 ML IV ONE (13:00)
--- NOTE | 2017-11-13 11:01 | VASCLAB ---
PROCEDURE: Lower Extremity Venous Duplex Exam. HISTORY: possible DVT in left thigh PRIORS: None. TECHNIQUE: Bilateral common femoral, femoral, popliteal and posterior tibial, peroneal and great saphenous veins were evaluated. Flow was assessed with color Doppler, compressibility, assessment of phasic flow and augmentation response. Report prepared by Toni Still, ADELA, RVT FINDINGS: RIGHT: 1. Common Femoral Vein: 1.1. Compressibility - Fully compressible: Thrombus - None : Flow - Phasic: Augmentation -Normal: Reflux - None. 2. Femoral Vein: 2.1. Compressibility - Fully compressible: Thrombus - None : Flow - Phasic: Augmentation -Normal: Reflux - None. 3. Popliteal Vein: 3.1. Compressibility - Fully compressible: Thrombus - None : Flow - Phasic: Augmentation -Normal: Reflux - None. 4. Posterior Tibial Vein: 4.1. Compressibility - Fully compressible: Thrombus - None: Flow - Phasic: Augmentation -Normal: Reflux - None. 5. Peroneal Vein: 5.1. Compressibility - Fully compressible: Thrombus - None: Flow - Phasic: Augmentation -Normal: Reflux - None. 6. Great Saphenous Vein: 6.1. Compressibility - Fully compressible: Thrombus - None: Flow - Phasic: Augmentation - Normal: Reflux - Severe. LEFT: 1. Common Femoral Vein: 1.1. Compressibility - Fully compressible: Thrombus - None: Flow - Phasic: Augmentation -Normal: Reflux - None. 2. Femoral Vein: 2.1. Compressibility - Fully compressible: Thrombus - None: Flow - Phasic: Augmentation -Normal: Reflux - None. 3. Popliteal Vein: 3.1. Compressibility - Fully compressible: Thrombus - None : Flow - Phasic: Augmentation -Normal: Reflux - None. 4. Posterior Tibial Vein: 4.1. Compressibility - Fully compressible: Thrombus - None: Flow - Phasic: Augmentation -Normal: Reflux - None. 5. Peroneal Vein: 5.1. Compressibility - Fully compressible: Thrombus - None: Flow - Phasic: Augmentation -Normal: Reflux - None. 6. Great Saphenous Vein: 6.1. Compressibility - Partial: Thrombus - Acute: Flow - Absent : Augmentation - None: Reflux - None. OTHER FINDINGS: Right: None significant. Left: None significant. IMPRESSION: Right: No evidence of deep or superficial vein thrombosis of the right lower extremity. Valvular incompetence of the right greater saphenous vein. Left: Acute superficial thrombophlebitis of the left greater saphenous vein with severe reduction of the venous return. No evidence of deep vein thrombosis of the left lower extremity. Normal valve function noted of the left side.
[2017-11-14] LABS: IGG INDEX CSF 0.41 (<0.66); SYNTHESIS RATE IGG CSF -6.7 mg/24 h (-9.9-3.3)
== END 2017-11-12 15:57 | disposition home or self-care (01) | DRG 13 ==
LOC: C.ER 23:52 → SUPCPDRO 23:52 → C.9E 11-08 02:49 → C.6T 11-08 13:43
PROVIDERS: ADMIT Family Medicine; ATTEND Family Medicine
PROC: 009U3ZX Drainage of Spinal Canal, Percutaneous Approach, Diagnostic (ICD-10-PCS; principal; 2017-11-08)
DX: G35 Multiple sclerosis (principal); I80.02 Phlebitis and thrombophlebitis of superficial vessels of left lower extremity; R07.89 Other chest pain; E78.5 Hyperlipidemia, unspecified; Z79.01 Long term (current) use of anticoagulants; Z79.82 Long term (current) use of aspirin; Z86.718 Personal history of other venous thrombosis and embolism